=== PATIENT | female | born 1985 | race Caucasian/White ===

== ENCOUNTER 2017-08-04 03:01 | Emergency (ER) | payer OTHER, MEDICAID, SELFPAY ==
[2017-08-04 03:11] VITALS: BP 131/84; PULSE 140; RESP 24; TEMP 36.5; O2SAT 100
--- NOTE | 2017-08-04 03:22 | DI.CT.S_ITS ---
PROCEDURE: CT ABDOMEN PELVIS W CON INDICATIONS: Upper GI bleeding and EtOH TECHNIQUE: After the administration of intravenous contrast, 5 mm thick sections acquired from the diaphragm to the symphysis. 5 mm coronal and sagittal reformats were acquired. For radiation dose reduction, the following was used: automated exposure control, adjustment of mA and/or kV according to patient size. COMPARISON: None. FINDINGS: Image quality: Excellent. ABDOMEN: Lung bases: Lung bases are clear. Heart size is normal. There is concentric wall thickening of the visualized distal esophagus. No definite gastroesophageal varices identified. Solid organs: There is diffuse hypoattenuation of the liver compatible with steatosis. The liver appears smooth in contour on CT. Gallbladder appears within normal limits without calcified gallstones. Biliary system is non dilated. Pancreas enhances normally. Spleen is borderline enlarged, measuring up to 13.4 cm No adrenal nodules. Kidneys demonstrate normal size and enhancement, without hydronephrosis. Peritoneum and bowel: The stomach is partially distended with fluid and gas present. No definite evidence of active extravasation visualized. Small bowel loops demonstrate normal wall thickness and caliber. There is mild colonic wall thickening involving the majority of the colon which is nondistended. No free fluid or air. Nodes and vessels: No retroperitoneal or mesenteric adenopathy by size criteria. Aorta and inferior vena cava are normal in size. Miscellaneous: No ventral hernias. PELVIS: Genitourinary: Bladder wall thickness is normal. There is a small peripheral enhancing cystic structure in the right ovary measuring up to approximately 1.5 cm likely representing a corpus luteal cyst. The uterus and ovaries appear within normal size limits for age. Miscellaneous: No inguinal hernias or adenopathy. Bones: No suspicious bony lesions. No vertebral body compression fractures. IMPRESSION: 1. Concentric wall thickening of the visualized distal esophagus consistent with a nonspecific esophagitis. No definite gastroesophageal varices identified. 2. Mild diffuse colonic wall thickening likely reflecting a mild infectious or inflammatory colitis. 3. Hypoattenuation of the liver consistent with steatosis. Dictated by: Vivek Ley M.D. on 08/04/2017 at 7:51 Approved by: Vivek Ley M.D. on 08/04/2017 at 7:56
--- NOTE | 2017-08-04 03:25 | DI.RAD.S_ITS ---
PROCEDURE: XR CHEST 1V INDICATIONS: chest pain after vomiting TECHNIQUE: One view of the chest was acquired. COMPARISON: [facility], , CHEST 1 VIEW, 01/13/2017, 16:33. FINDINGS: Surgical changes and devices: None. Lungs and pleura: No pleural effusions or pneumothorax. Lungs are clear. Mediastinum: Mediastinal contours appear normal. Heart size is normal. Bones and chest wall: No suspicious bony lesions. Overlying soft tissues appear unremarkable. IMPRESSION: Normal for age, source of current symptoms is not seen. Dictated by: Suleman Ariza M.D. on 08/04/2017 at 9:08 Approved by: Suleman Ariza M.D. on 08/04/2017 at 9:08
[2017-08-04] MEDS: ONDANSETRON 4 MG/2 ML INJ IV (03:29)
[2017-08-04] MEDS: PANTOPRAZOLE 40 MG VIAL IV (03:29)
[2017-08-04] MEDS: SODIUM CHLORIDE 0.9% 1,000 ML 250 ML IV (03:29)
--- NOTE | 2017-08-04 03:39 | PC.NURSE ---
Pt reports several days of n/v/d/chills with bright red bloody emesis x2 tonight. Reports history of ETOH abuse, last drink 3 weeks ago per pt. Has not been taking her omeprazole. Hx of esophagitis. Abd soft, sinus tach on monitor, md at bedside at time of assmt.
[2017-08-04 03:42] LABS: Add Manual Diff / Slide Review NO; Basophils Percent Auto 0.1 % (0-2); Hematocrit 48.2 % (36-46); Hemoglobin 17.3 g/dL (12.0-16.0); Lymphocytes Percent Auto 6.5 % (25-40); Mean Corpuscular HGB Conc 35.9 % (30-36); Mean Corpuscular Hemoglobin 35.8 PG (26-34); Mean Corpuscular Volume 99.6 fL (80-100); Monocytes Percent Auto 5.7 % (3-14); Neutrophils Absolute Auto 10900 /uL (3000-5900); Neutrophils Percent Auto 87.7 % (50-75); Platelet Count 155 X10^3/uL (150-400); Red Blood Cell Count 4.84 X10^6/uL (4.0-5.2); Red Cell Distribution Width 15.2 % (11.6-14.8); White Blood Cell Count 12.4 X10^3/uL (4.5-11.0)
[2017-08-04 03:44] LABS: Lactate (Lactic Acid) 6.7 mmol/L (0.7-2.1)
[2017-08-04 03:46] LABS: PTT Partial Thromboplastin Tim 32 SECONDS (26.4-36.2)
[2017-08-04 03:47] LABS: Alanine Aminotransferase 54 IU/L (9-52); Albumin 5.7 g/dL (3.5-5.0); Albumin Globulin Ratio 1.2 (1.0-2.8); Alkaline Phosphatase 90 U/L (38-126); Aspartate Aminotransferase 95 IU/L (14-36); Calcium 8.9 mg/dL (8.4-10.2); Estimated Glomerular Filt Rate 57.2 mL/min (>60); Globulin 4.7 g/dL (1.7-4.1); Glucose 157 mg/dL (70-100); HEMOLYSIS 40 (0-50); Potassium 5.1 mmol/L (3.4-5.1); Sodium 139 mmol/L (137-145)
[2017-08-04 03:51] LABS: Carbon Dioxide < 5.0 mmol/L (22-32)
[2017-08-04 03:52] LABS: Total Protein 10.4 g/dL (6.3-8.2)
[2017-08-04 03:54] LABS: Lipase 595 U/L (23-300)
[2017-08-04] MEDS: LORazepam 2 MG/ML SYRINGE IV ×2 (03:54→07:30)
[2017-08-04 03:57] LABS: INR 1.1 (0.9-1.3); Prothrombin Time 11.5 SECONDS (10.1-12.7)
[2017-08-04 03:58] VITALS: BP 128/94; PULSE 129; RESP 19; O2SAT 99
[2017-08-04 04:11] LABS: Magnesium 1.7 mg/dL (1.6-2.3); Phosphorous 5.8 mg/dL (2.5-4.5)
[2017-08-04 04:16] LABS: Pregnancy Test Serum,Qual Negative (Negative)
--- NOTE | 2017-08-04 04:19 | ED.GIBLEED ---
HPI - GI Bleed General Chief complaint: GI Bleed Stated complaint: THROWING UP BLOOD Time Seen by Provider: 08/04/17 03:04 Source: patient, RN notes reviewed and old records reviewed Mode of arrival: ambulatory Limitations: no limitations History of Present Illness HPI Narrative: Patient is a 31-year-old female presenting with hematemesis x1. She has a known binge alcoholic. She says she has had a drink for about 2 weeks. Over the last 3 days she has been having numerous episodes of vomiting. It is all been by all bile. This evening she had 1 episode of bright red blood in it was after a violent episode of vomiting. She vomited 1 other time after that and she said it was pink a but no gross blood like before. She has been having lots of diarrhea as well but she denies any black stools or bloody stools. She is having diffuse abdominal pain. She actually had any EGD with Dr. Morocho: 05/28/2017 for ulcerative esophagitis. At that time there were no ulcers present and no mention of varices. Patient denies having history of varices Related Data Home Medications Medication Instructions Recorded Confirmed lisdexamfetamine [Vyvanse] 40 mg PO QDAY #0 01/13/17 omeprazole #0 04/28/17 Previous Rx's Medication Instructions Recorded sucralfate [Carafate] 1 gm PO ACHS #120 ml 02/24/17 cyanocobalamin (vitamin B-12) 1,000 mcg IM X1 #1 ea 03/10/17 VITAMIN B COMPLEX (VITAMIN B 1 ml IM QWEEK #1 vial 03/12/17 COMPLEX 100 30 ML) lorazepam [Ativan] 1 mg PO BIDP PRN #30 tab 04/28/17 Allergies Allergy/AdvReac Type Severity Reaction Status Date / Time No Known Allergies Allergy Unknown Unverified 06/30/17 12:36 [NO KNOWN ALLERGIES] Review of Systems Review of Systems All systems reviewed & are unremarkable except as noted in HPI and below Constitutional Denies frequent falls ENT Ears, Nose, Mouth, and Throat: Denies dizziness Cardiovascular Reports lightheadedness, Reports palpitations, Denies dyspnea and Denies dyspnea on exertion Respiratory Denies cough, Denies dyspnea, Denies dyspnea on exertion and Denies wheezing Gastrointestinal Gastrointestinal: Reports as per HPI, Reports abdominal pain, Reports change in bowel habits, Reports diarrhea, Reports nausea and Reports hematemesis (x1) Musculoskeletal Denies numbness Integumentary/Breasts Denies pruritus, Denies erythema, Denies rash and Denies wounds Neurologic Denies behavioral changes, Denies confusion, Denies dizziness, Denies frequent falls, Denies numbness and Denies seizure-like activity Psychiatric Denies behavioral changes and Denies confusion Endocrine Reports palpitations Allergic/Immunologic Denies wheezing PFSH Medical History Alcoholism (Acute) Pancreatitis (Acute) Surgical History Status post adenoidectomy Social History Smoking Status: Former smoker Exam Const General: in distress, No intoxicated appearing and No well hydrated Nutritional Appearance: average body habitus HENMT Face and sinus: dry mucous membranes and other (Bright blood on the lips) Neck Neck: No JVD Cardio Rate: tachycardic Rhythm: regular rhythm GI Palpation: soft Percussion: normal to percussion Other: Patient refused rectal exam Neuro General: alert, oriented x3, gait normal and no focal motor deficits Cranial Nerves: CN's II-XI intact bilaterally Speech: speech normal Motor: strength 5/5 throughout and No asterixis Sensory Exam: no sensory deficits noted Course Hospital Course: 7:00 a.m. repeat labs return as EMS is here to transport patient to the ICU. Potassium is called as critical 6.5. Of Lasix insulin dextrose of Kayexalate ordered. Lab states that it is not hemolyzed. Otherwise her labs are actually improving bicarb of now 10. Orders Ordered: Discontinued Medications Dextrose (D50w) 25 gm IV NOW ONE Stop: 08/04/17 07:00 Last Admin: 08/04/17 07:19 Dose: 25 gm Furosemide (Lasix) 60 mg IV NOW ONE Stop: 08/04/17 07:00 Last Admin: 08/04/17 07:32 Dose: Octreotide Acetate 500 mcg/ (Sodium Chloride) 101 mls @ 5.05 mls/hr IV CONT JOSEFINA Last Infusion: 08/04/17 07:50 Dose: 24.99 mcg/hr, 5.05 mls/hr Admin: 08/04/17 04:43 Dose: 25 mcg/hr, 5.05 mls/hr Pantoprazole Sodium 80 mg/ (Sodium Chloride) 100 mls @ 10 mls/hr IV CONT JOSEFINA Last Infusion: 08/04/17 07:34 Dose: 8 mg/hr, 10 mls/hr Admin: 08/04/17 04:43 Dose: 8 mg/hr, 10 mls/hr Sodium Chloride (Normal Saline 0.9%) 1,000 mls @ 250 mls/hr IV CONT JOSEFINA Last Infusion: 08/04/17 07:34 Dose: 0 mls/hr Admin: 08/04/17 03:29 Dose: 250 mls/hr Sodium Chloride (Normal Saline 0.9%) 1,000 mls @ 1,000 mls/hr IV BOLUS ONE Stop: 08/04/17 04:54 Last Infusion: 08/04/17 05:54 Dose: 0 mls/hr Admin: 08/04/17 04:44 Dose: 1,000 mls/hr Dextrose/Sodium Chloride (Dextrose 5%-0.2% Ns) 500 mls @ 500 mls/hr IV BOLUS ONE Stop: 08/04/17 05:03 Last Admin: 08/04/17 05:57 Dose: Not Given Thiamine HCl 100 mg/ Dextrose 51 mls @ 204 mls/hr IV NOW ONE Stop: 08/04/17 04:06 Last Infusion: 08/04/17 05:53 Dose: 0 mls/hr Admin: 08/04/17 04:44 Dose: 204 mls/hr Dextrose/Sodium Chloride (Dextrose 5%-0.9% Ns) 1,000 mls @ 500 mls/hr IV CONT JOSEFINA Last Infusion: 08/04/17 06:48 Dose: 0 mls/hr Admin: 08/04/17 04:45 Dose: 500 mls/hr Dextrose/Sodium Chloride (Dextrose 5%-0.9% Ns) 1,000 mls @ 250 mls/hr IV CONT JOSEFINA Last Infusion: 08/04/17 07:51 Dose: 250 mls/hr Admin: 08/04/17 06:49 Dose: 250 mls/hr Insulin Human Regular (Humulin R) 10 unit IV NOW ONE Stop: 08/04/17 07:05 Last Admin: 08/04/17 07:18 Dose: 10 unit Lorazepam (Ativan) 2 mg IV NOW ONE Stop: 08/04/17 03:50 Last Admin: 08/04/17 03:54 Dose: 2 mg Lorazepam (Ativan) 2 mg IV NOW ONE Stop: 08/04/17 07:27 Last Admin: 08/04/17 07:30 Dose: 2 mg Octreotide Acetate (Sandostatin) 50 mcg IV NOW ONE Stop: 08/04/17 03:21 Last Admin: 08/04/17 04:43 Dose: 50 mcg Ondansetron HCl (Zofran) 4 mg IV NOW ONE Stop: 08/04/17 03:21 Last Admin: 08/04/17 03:29 Dose: 4 mg Pantoprazole Sodium (Protonix) 40 mg IV NOW ONE Stop: 08/04/17 03:21 Last Admin: 08/04/17 03:29 Dose: 40 mg Sodium Polystyrene Sulfonate (Kayexalate) 30 gm PO NOW ONE Stop: 08/04/17 07:00 Last Admin: 08/04/17 07:32 Dose: Consultations Consultation #1: Dr. Schulz, surgery at [facility] recommend that with upper GI bleed patient be transferred to other facility with a very capable of fixing varicocele bleed Time: 05:03 Consultation #2: ICU at [facility], she has been updated patient's symptoms and test results. Repeat lactate and electrolytes are pending. She request Keller catheter be placed. And continue with hydration. 7:30 a.m. ICU harness placer notified of repeat potassium of more than 6. He he understands that recheck potassium is pending IV insulin and dextrose given but no other hyperkalemic meds. He he was agreeable to transfer at this time. Time: 05:23 Last Vital Signs Temp 97.7 F 08/04/17 07:53 Pulse 118 H 08/04/17 07:53 Resp 26 H 08/04/17 07:53 BP 126/84 H 08/04/17 07:53 Pulse Ox 100 08/04/17 07:53 MDM - GI Bleed MDM Narrative Medical decision making narrative: The patient is severely dehydrated from vomiting for multiple days. Definitely has ketoacidosis, possible alcoholic ketoacidosis. Although she says she has not been drinking for about 2 weeks. She had some mild withdrawal symptoms but no seizures or hallucinations. She has no further episodes of vomiting. She only had 1 episode of bright red blood without evidence of blood on her lips. No documented varices on CT or most recent EGD. This is most likely a Trish-Rivera tear however will continue to treat for variceal bleeding. She is feeling much better with IV fluids. He is given 1 dose of IV thiamine prior to starting the D5 Anion gap 44, lactic acid 6.7, large ketones Differential Diagnosis Likely gastritis, Trish-Rivera syndrome, Upper gastrointestinal hemorrhage and Lower gastrointestinal hemorrhage Medical Records Attestation: I reviewed the patient's medical records. Lab Data Attestation: I reviewed the patient's lab results. Result diagrams: 08/04/17 03:20 08/04/17 07:25 Lab Results 08/04/17 08/04/17 08/04/17 Range/Units 03:20 03:20 03:20 WBC 12.4 H (4.5-11.0) X10^3/uL RBC 4.84 (4.0-5.2) X10^6/uL Hgb 17.3 H (12.0-16.0) g/dL Hct 48.2 H (36-46) % MCV 99.6 (80-100) fL MCH 35.8 H (26-34) PG MCHC 35.9 (30-36) % RDW 15.2 H (11.6-14.8) % Plt Count 155 (150-400) X10^3/uL Neut % (Auto) 87.7 H (50-75) % Lymph % (Auto) 6.5 L (25-40) % Hartley % (Auto) 5.7 (3-14) % Eos % (Auto) 0.0 L (2-4) % Baso % (Auto) 0.1 (0-2) % Neut # (Auto) 81741 H (5187-7837) /uL PT (10.1-12.7) SECONDS INR (0.9-1.3) APTT (26.4-36.2) SECONDS ABG pH (7.35-7.45) ABG pCO2 (35-45) mmHg ABG pO2 (80-105) mmHg ABG HCO3 (23-27) mmol/L ABG Total CO2 (23-27) mmol/L ABG O2 Saturation (95-100) % ABG Base Excess (-2-3) mmol/L FiO2 Sodium (137-145) mmol/L Potassium (3.4-5.1) mmol/L Chloride (98-107) mmol/L Carbon Dioxide (22-32) mmol/L BUN (7-17) mg/dL Creatinine (0.52-1.04) mg/dL Estimated GFR (>60) mL/min BUN/Creatinine Ratio (6-22) Glucose (70-100) mg/dL Lactate 6.7 H (0.7-2.1) mmol/L Calcium (8.4-10.2) mg/dL Phosphorus (2.5-4.5) mg/dL Magnesium (1.6-2.3) mg/dL Total Bilirubin (0.2-1.3) mg/dL AST (14-36) IU/L ALT (9-52) IU/L Alkaline Phosphatase (38-126) U/L Total Protein (6.3-8.2) g/dL Albumin (3.5-5.0) g/dL Globulin (1.7-4.1) g/dL Albumin/Globulin Ratio (1.0-2.8) Lipase 595 H (23-300) U/L Serum , Qual (Negative) Ketones (<0.27) mmol/L Blood Type Antibody Screen 08/04/17 08/04/17 08/04/17 Range/Units 03:20 03:20 03:20 WBC (4.5-11.0) X10^3/uL RBC (4.0-5.2) X10^6/uL Hgb (12.0-16.0) g/dL Hct (36-46) % MCV (80-100) fL MCH (26-34) PG MCHC (30-36) % RDW (11.6-14.8) % Plt Count (150-400) X10^3/uL Neut % (Auto) (50-75) % Lymph % (Auto) (25-40) % Hartley % (Auto) (3-14) % Eos % (Auto) (2-4) % Baso % (Auto) (0-2) % Neut # (Auto) (5636-3057) /uL PT 11.5 (10.1-12.7) SECONDS INR 1.1 (0.9-1.3) APTT 32 (26.4-36.2) SECONDS ABG pH (7.35-7.45) ABG pCO2 (35-45) mmHg ABG pO2 (80-105) mmHg ABG HCO3 (23-27) mmol/L ABG Total CO2 (23-27) mmol/L ABG O2 Saturation (95-100) % ABG Base Excess (-2-3) mmol/L FiO2 Sodium 139 (137-145) mmol/L Potassium 5.1 (3.4-5.1) mmol/L Chloride 95.0 L (98-107) mmol/L Carbon Dioxide < 5.0 L* (22-32) mmol/L BUN 11.0 (7-17) mg/dL Creatinine 1.10 H (0.52-1.04) mg/dL Estimated GFR 57.2 L (>60) mL/min BUN/Creatinine Ratio 10.0 (6-22) Glucose 157 H (70-100) mg/dL Lactate (0.7-2.1) mmol/L Calcium 8.9 (8.4-10.2) mg/dL Phosphorus (2.5-4.5) mg/dL Magnesium (1.6-2.3) mg/dL Total Bilirubin 2.0 H (0.2-1.3) mg/dL AST 95 H (14-36) IU/L ALT 54 H (9-52) IU/L Alkaline Phosphatase 90 (38-126) U/L Total Protein 10.4 H* (6.3-8.2) g/dL Albumin 5.7 H (3.5-5.0) g/dL Globulin 4.7 H (1.7-4.1) g/dL Albumin/Globulin Ratio 1.2 (1.0-2.8) Lipase (23-300) U/L Serum , Qual (Negative) Ketones (<0.27) mmol/L Blood Type Antibody Screen 08/04/17 08/04/17 08/04/17 Range/Units 03:20 03:20 03:20 WBC (4.5-11.0) X10^3/uL RBC (4.0-5.2) X10^6/uL Hgb (12.0-16.0) g/dL Hct (36-46) % MCV (80-100) fL MCH (26-34) PG MCHC (30-36) % RDW (11.6-14.8) % Plt Count (150-400) X10^3/uL Neut % (Auto) (50-75) % Lymph % (Auto) (25-40) % Hartley % (Auto) (3-14) % Eos % (Auto) (2-4) % Baso % (Auto) (0-2) % Neut # (Auto) (7968-5726) /uL PT (10.1-12.7) SECONDS INR (0.9-1.3) APTT (26.4-36.2) SECONDS ABG pH (7.35-7.45) ABG pCO2 (35-45) mmHg ABG pO2 (80-105) mmHg ABG HCO3 (23-27) mmol/L ABG Total CO2 (23-27) mmol/L ABG O2 Saturation (95-100) % ABG Base Excess (-2-3) mmol/L FiO2 Sodium (137-145) mmol/L Potassium (3.4-5.1) mmol/L Chloride (98-107) mmol/L Carbon Dioxide (22-32) mmol/L BUN (7-17) mg/dL Creatinine (0.52-1.04) mg/dL Estimated GFR (>60) mL/min BUN/Creatinine Ratio (6-22) Glucose (70-100) mg/dL Lactate (0.7-2.1) mmol/L Calcium (8.4-10.2) mg/dL Phosphorus 5.8 H (2.5-4.5) mg/dL Magnesium 1.7 (1.6-2.3) mg/dL Total Bilirubin (0.2-1.3) mg/dL AST (14-36) IU/L ALT (9-52) IU/L Alkaline Phosphatase (38-126) U/L Total Protein (6.3-8.2) g/dL Albumin (3.5-5.0) g/dL Globulin (1.7-4.1) g/dL Albumin/Globulin Ratio (1.0-2.8) Lipase (23-300) U/L Serum , Qual (Negative) Ketones 10.07 H (<0.27) mmol/L Blood Type O Positive Antibody Screen Negative 08/04/17 08/04/17 08/04/17 Range/Units 03:20 06:24 06:24 WBC (4.5-11.0) X10^3/uL RBC (4.0-5.2) X10^6/uL Hgb (12.0-16.0) g/dL Hct (36-46) % MCV (80-100) fL MCH (26-34) PG MCHC (30-36) % RDW (11.6-14.8) % Plt Count (150-400) X10^3/uL Neut % (Auto) (50-75) % Lymph % (Auto) (25-40) % Hartley % (Auto) (3-14) % Eos % (Auto) (2-4) % Baso % (Auto) (0-2) % Neut # (Auto) (9007-2705) /uL PT (10.1-12.7) SECONDS INR (0.9-1.3) APTT (26.4-36.2) SECONDS ABG pH (7.35-7.45) ABG pCO2 (35-45) mmHg ABG pO2 (80-105) mmHg ABG HCO3 (23-27) mmol/L ABG Total CO2 (23-27) mmol/L ABG O2 Saturation (95-100) % ABG Base Excess (-2-3) mmol/L FiO2 Sodium 130 L (137-145) mmol/L Potassium 6.5 H* D (3.4-5.1) mmol/L Chloride 98.0 (98-107) mmol/L Carbon Dioxide 10.0 L (22-32) mmol/L BUN (7-17) mg/dL Creatinine (0.52-1.04) mg/dL Estimated GFR (>60) mL/min BUN/Creatinine Ratio (6-22) Glucose (70-100) mg/dL Lactate 1.7 (0.7-2.1) mmol/L Calcium (8.4-10.2) mg/dL Phosphorus (2.5-4.5) mg/dL Magnesium (1.6-2.3) mg/dL Total Bilirubin (0.2-1.3) mg/dL AST (14-36) IU/L ALT (9-52) IU/L Alkaline Phosphatase (38-126) U/L Total Protein (6.3-8.2) g/dL Albumin (3.5-5.0) g/dL Globulin (1.7-4.1) g/dL Albumin/Globulin Ratio (1.0-2.8) Lipase (23-300) U/L Serum , Qual Negative (Negative) Ketones (<0.27) mmol/L Blood Type Antibody Screen 08/04/17 08/04/17 Range/Units 06:38 07:25 WBC (4.5-11.0) X10^3/uL RBC (4.0-5.2) X10^6/uL Hgb (12.0-16.0) g/dL Hct (36-46) % MCV (80-100) fL MCH (26-34) PG MCHC (30-36) % RDW (11.6-14.8) % Plt Count (150-400) X10^3/uL Neut % (Auto) (50-75) % Lymph % (Auto) (25-40) % Hartley % (Auto) (3-14) % Eos % (Auto) (2-4) % Baso % (Auto) (0-2) % Neut # (Auto) (8612-9307) /uL PT (10.1-12.7) SECONDS INR (0.9-1.3) APTT (26.4-36.2) SECONDS ABG pH 7.24 L* (7.35-7.45) ABG pCO2 24.0 L* (35-45) mmHg ABG pO2 91 (80-105) mmHg ABG HCO3 10 L (23-27) mmol/L ABG Total CO2 11 L (23-27) mmol/L ABG O2 Saturation 96 (95-100) % ABG Base Excess -17.0 L (-2-3) mmol/L FiO2 0.21 Sodium (137-145) mmol/L Potassium 6.2 H (3.4-5.1) mmol/L Chloride (98-107) mmol/L Carbon Dioxide (22-32) mmol/L BUN (7-17) mg/dL Creatinine (0.52-1.04) mg/dL Estimated GFR (>60) mL/min BUN/Creatinine Ratio (6-22) Glucose (70-100) mg/dL Lactate (0.7-2.1) mmol/L Calcium (8.4-10.2) mg/dL Phosphorus (2.5-4.5) mg/dL Magnesium (1.6-2.3) mg/dL Total Bilirubin (0.2-1.3) mg/dL AST (14-36) IU/L ALT (9-52) IU/L Alkaline Phosphatase (38-126) U/L Total Protein (6.3-8.2) g/dL Albumin (3.5-5.0) g/dL Globulin (1.7-4.1) g/dL Albumin/Globulin Ratio (1.0-2.8) Lipase (23-300) U/L Serum , Qual (Negative) Ketones (<0.27) mmol/L Blood Type Antibody Screen Imaging Data CT scan - abdomen: Radiologist's impression: 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 No evidence of bowel obstruction. Fatty liver and suspicion portal hypertension suspicion slight opacification of left umbilical vein. Borderline splenomegaly. Collapsed gastric antrum and pylorus without obvious ulcer or wall thickening Chest x-ray: Attestation: I personally reviewed and interpreted this imaging study as follows: My impression: No acute cardiopulmonary process ECG Data Attestation: I personally reviewed and interpreted this ECG as follows: Prior ECG tracings: available for review Interpretation: Sinus tachycardia rate [address] changes Discharge Plan Departure Patient Disposition: [facility] Clinical Impression: Alcoholic ketoacidosis, Acute GI bleeding Discharge Date/Time: 08/04/17 07:49 Interventions: ED Discharge Assessment Last Done: 08/04/17 07:53 Prescriptions: No Action lisdexamfetamine [Vyvanse] 40 MG capsule 40 mg PO QDAY Qty: 0 RF: 0 sucralfate [Carafate] 1 GM/10 ML suspension 1 gm PO ACHS Qty: 120 RF: 3 cyanocobalamin (vitamin B-12) Vitamin B-12 solution 1,000 mcg IM X1 Qty: 1 RF: 3 VITAMIN B COMPLEX (VITAMIN B COMPLEX 100 30 ML) 1 ml IM QWEEK Qty: 1 RF: 0 omeprazole 20 mg Tablet,Delayed Release (Dr/Ec) Qty: 0 RF: 0 lorazepam [Ativan] 1 MG tablet 1 mg PO BIDP PRNQty: 30 RF: 3
[2017-08-04 04:39] LABS: Ketones (Beta-Hydroxybutyrate) 10.07 mmol/L (<0.27)
[2017-08-04] MEDS: PANTOPRAZOLE 80 MG in SODIUM CHLORIDE 0.9% 100 ML 10 ML IV (04:43)
[2017-08-04] MEDS: OCTREOTIDE 100 MCG/ML VIAL 50 MCG IV (04:43)
[2017-08-04] MEDS: OCTREOTIDE 500 MCG in SODIUM CHLORIDE 0.9% 100 ML 5.05 ML IV (04:43)
[2017-08-04] MEDS: SODIUM CHLORIDE 0.9% 1,000 ML 1000 ML IV (04:44)
[2017-08-04] MEDS: THIAMINE 100 MG in DEXTROSE 5 % IN WATER 50 ML 204 ML IV (04:44)
[2017-08-04] MEDS: DEXTROSE 5%-0.9% NS 1,000 ML 500 ML IV (04:45)
[2017-08-04 04:52] VITALS: BP 135/91; PULSE 112; RESP 22; O2SAT 100
[2017-08-04 06:49] VITALS: BP 132/84; PULSE 116; RESP 25; O2SAT 99
[2017-08-04] MEDS: DEXTROSE 5%-0.9% NS 1,000 ML 250 ML IV (06:49)
[2017-08-04 06:54] LABS: Lactate (Lactic Acid) 1.7 mmol/L (0.7-2.1)
[2017-08-04 06:55] LABS: HEMOLYSIS < 15 (0-50); Sodium 130 mmol/L (137-145)
[2017-08-04 07:00] LABS: Potassium 6.5 mmol/L (3.4-5.1)
[2017-08-04] MEDS: INSULIN REGULAR 100 UNIT/ML 3 ML VIAL 10 UNIT IV (07:18)
[2017-08-04] MEDS: DEXTROSE 50 % IN WATER 25 GM/50 ML SYRINGE IV (07:19)
[2017-08-04 07:20] LABS: HCO3 ABG 10 mmol/L (23-27); PO2 ABG 91 mmHg (80-105); TCO2 ABG 11 mmol/L (23-27); pH ABG 7.24 (7.35-7.45)
[2017-08-04 07:21] LABS: Fractionated Inspired Oxygen 0.21; Oxygen Saturation ABG 96 % (95-100)
[2017-08-04 07:32] LABS: Reflexed Lactate in 2 Hours Y
--- NOTE | 2017-08-04 07:32 | PC.NURSE ---
0732 Report called to Nga ROCK at [facility]
[2017-08-04 07:35] LABS: HEMOLYSIS < 15 (0-50)
[2017-08-04 07:36] LABS: Potassium 6.2 mmol/L (3.4-5.1)
[2017-08-04 07:53] VITALS: BP 126/84; PULSE 118; RESP 26; TEMP 36.5; O2SAT 100
== END 2017-08-04 07:49 | disposition short-term general hospital (02) ==
PROVIDERS: Emergency Provider Emergency Medicine; PCP Physician Assistant
DX: E87.2 Acidosis (principal); K92.2 Gastrointestinal hemorrhage, unspecified
CPT/HCPCS: 36591; 36600; 71045; 74177; 80051; 80053; 82009; 82805; 82962; 83605; 83690; 83735; 84100; 84132; 84703; 85025; 85610; 85730; 86850; 86900; 86901; 93005; 96361; 96365; 96366; 96375; 99285; C9113; J2060; J2354; J2405; Q9967

== ENCOUNTER 2017-10-05 22:14 | Inpatient (IN) | payer OTHER, MEDICAID, SELFPAY ==
[2017-10-05 22:24] VITALS: BP 139/96; PULSE 131; RESP 20; TEMP 36.4; O2SAT 96; BMI 23.6
[2017-10-05] MEDS: LORazepam 2 MG/ML SYRINGE IV (23:08)
[2017-10-05] MEDS: SODIUM CHLORIDE 0.9% 1,000 ML 1000 ML IV (23:08)
[2017-10-05 23:10] VITALS: BP 122/92; PULSE 112; RESP 22; O2SAT 97
[2017-10-05 23:31] LABS: Add Manual Diff / Slide Review NO; Basophils Percent Auto 0.5 % (0-2); Hematocrit 49.3 % (36-46); Hemoglobin 17.4 g/dL (12.0-16.0); Lymphocytes Percent Auto 11.1 % (25-40); Mean Corpuscular HGB Conc 35.4 % (30-36); Mean Corpuscular Hemoglobin 34.8 PG (26-34); Mean Corpuscular Volume 98.4 fL (80-100); Monocytes Percent Auto 4.2 % (3-14); Neutrophils Absolute Auto 6900 /uL (3000-5900); Neutrophils Percent Auto 84.2 % (50-75); Platelet Count 194 X10^3/uL (150-400); Red Cell Distribution Width 16.2 % (11.6-14.8); White Blood Cell Count 8.1 X10^3/uL (4.5-11.0)
[2017-10-05 23:35] LABS: Alanine Aminotransferase 80 IU/L (9-52); Albumin 5.4 g/dL (3.5-5.0); Albumin Globulin Ratio 1.4 (1.0-2.8); Alkaline Phosphatase 91 U/L (38-126); Aspartate Aminotransferase 136 IU/L (14-36); BUN Creatinine Ratio 8.8 (6-22); Bilirubin Unconjugated 0.4 mg/dL (0.0-1.1); Blood Urea Nitrogen 7 mg/dL (7-17); Calcium 8.8 mg/dL (8.4-10.2); Chloride 99 mmol/L (98-107); Estimated Glomerular Filt Rate > 60.0 mL/min (>60); Globulin 3.8 g/dL (1.7-4.1); Glucose 91 mg/dL (70-100); HEMOLYSIS < 15 (0-50); Lipase 201 U/L (23-300); Magnesium 1.9 mg/dL (1.6-2.3); Potassium 4.8 mmol/L (3.4-5.1); Sodium 140 mmol/L (137-145); Total Protein 9.2 g/dL (6.3-8.2)
[2017-10-05] MEDS: THIAMINE 100 MG in DEXTROSE 5 % IN WATER 50 ML 204 ML IV (23:37)
[2017-10-05] MEDS: ONDANSETRON 4 MG/2 ML INJ IV (23:37)
[2017-10-05 23:52] LABS: Macrocytosis 2+; Polychromasia 1+
[2017-10-05 23:54] LABS: Carbon Dioxide < 5 mmol/L (22-32)
[2017-10-06] VITALS (11 sets, daily range): BP systolic 111–140; BP diastolic 59–88; PULSE 95–131; RESP 13–22; TEMP 36.3–37.2; O2SAT 96–100; BMI 23.8
[2017-10-06 00:07] LABS: Ethanol (ETOH) 162 mg/dL
[2017-10-06 00:45] LABS: PCO2 VBG 33.3 mmHg (45-50); PO2 VBG 41 mmHg (35-45); pH VBG 7.09 (7.31-7.41)
[2017-10-06 00:46] LABS: HCO3 VBG 10 mmol/L (24-28); Oxygen Saturation VBG 59 % (70-75); Total CO2 VBG 11 mmol/L (24-29)
[2017-10-06 01:21] LABS: Ketones (Beta-Hydroxybutyrate) 10.89 mmol/L (<0.27)
--- NOTE | 2017-10-06 01:29 | ED_ITS ---
HPI - Alcohol General Chief Complaint: Toxicology Problem Stated Complaint: ETOH PARVIN Uriostegui Time Seen by Provider: 10/05/17 22:36 Source: patient Mode of arrival: ambulatory Limitations: no limitations History of Present Illness HPI narrative: 32-year-old female with history of significant alcohol abuse, up to 750mL of vodka daily. She has been drinking at least this heavy for the past few weeks and stopped 24 hr ago. She presents shaking and nauseated with a terrible headache and a racing heart. She has been through alcohol withdrawal in the past but denies any history of seizures. She was seen in July for alcohol ketoacidosis and upper GI bleed and was transferred to tertiary care center. She denies any GI bleeding, epigastric pain, dark and tarry stools this time. MD complaint: alcohol withdrawal Chronic alcohol use: Yes Previous visits for alcohol intoxication: Yes Recent trauma: No Associated symptoms: nausea and tremors Treatments prior to arrival: none Related Data Home Medications Medication Instructions Recorded Confirmed lisdexamfetamine [Vyvanse] 40 mg PO QDAY #0 01/13/17 10/06/17 omeprazole 20 mg PO DAILY #0 04/28/17 10/06/17 Previous Rx's Medication Instructions Recorded cyanocobalamin (vitamin B-12) 1,000 mcg IM X1 #1 ea 03/10/17 lorazepam 1 mg tablet 1 mg PO BIDP PRN #30 tab 09/09/17 Allergies Allergy/AdvReac Type Severity Reaction Status Date / Time No Known Allergies Allergy Unknown Verified 10/05/17 23:08 [NO KNOWN ALLERGIES] Review of Systems Review of Systems All systems reviewed & are unremarkable except as noted in HPI and below Constitutional Denies chills, Denies fever(s), Reports lethargy and Reports weakness Eyes Denies change in vision, Denies eye discharge, Denies irritation and Denies loss of vision ENT Ears, Nose, Mouth, and Throat: Denies change in voice, Denies neck pain and Denies sore throat Cardiovascular Denies chest pain, Reports irregular heart rhythm, Denies lightheadedness, Denies palpitations, Denies dyspnea, Denies dyspnea on exertion and Denies orthopnea Respiratory Denies cough, Denies dyspnea, Denies dyspnea on exertion and Denies wheezing Gastrointestinal Gastrointestinal: Denies abdominal pain, Denies change in bowel habits, Denies diarrhea, Denies nausea and Denies vomiting Genitourinary Denies hematuria, Denies flank pain, Denies urinary incontinence and Denies urinary urgency Musculoskeletal Denies neck pain Integumentary/Breasts Denies pruritus, Denies erythema, Denies rash and Denies wounds Neurologic Denies confusion, Denies loss of vision and Reports weakness Psychiatric Denies anxiety, Denies confusion, Denies depression, Denies homicidal ideation and Denies suicidal ideation Endocrine Denies palpitations Hematologic/Lymphatic Denies easy bruising Allergic/Immunologic Denies wheezing PFSH Medical History Alcoholism (Acute) Pancreatitis (Acute) Surgical History Status post adenoidectomy Social History household members: family Smoking Status: Current every day smoker alcohol intake: current Exam Narrative Exam Narrative: 32-year-old female in obvious distress, resting tremor, nauseated tachycardic Initial Vital Signs Initial Vital Signs: Vital Signs Temperature 97.6 F 10/05/17 22:24 Pulse Rate 131 H 10/05/17 22:24 Respiratory Rate 20 10/05/17 22:24 Blood Pressure 139/96 H 10/05/17 22:24 Pulse Oximetry 96 10/05/17 22:24 Const General: cooperative and well developed Nutritional Appearance: well nourished Orientation: alert, awake, oriented x3 and not confused HENKY Head: normocephalic and atraumatic Ears: external ears normal and TM's normal bilaterally Nose: external nose normal and No nasal discharge Face and sinus: sinuses nontender, face symmetric, no sinus tenderness and No dry mucous membranes Mouth: oral mucosae normal and moist mucous membranes Teeth and gingiva: dentition normal Throat: tonsils normal and uvula midline Eyes General: appearance normal, both eyes and all related structures Eyelids: eyelids normal Conjunctivae: conjunctivae normal Sclera: sclerae normal Pupils: PERRL EOM: EOM intact bilaterally Neck Neck: normal visual inspection, trachea midline, No lymphadenopathy, No midline deformity and No JVD Lymphatic: No lymphedema Chest Chest: normal inspection of the chest Resp Effort & Inspection: normal respiratory effort, able to speak in complete sentences, no respiratory distress and no use of accessory muscles Auscultation: clear to auscultation bilaterally, no rales, no rhonchi and no wheezes Cardio Rate: tachycardic Rhythm: regular rhythm Heart Sounds: no click, no gallops, no murmurs and no rubs Pulses: normal peripheral pulses GI Inspection: non-distended Palpation: soft, no hepatosplenomegaly, No guarding, No pulsatile mass and No tender Auscultation: normal bowel sounds Back/Spine/Pelvis Back: No CVA tenderness Cervical Spine: cervical ROM normal and No pain with cervical ROM Thoracic/Lumbar Spine: thoracic and lumbar spine normal to inspection Skin General: no rashes or lesions noted, No jaundice and No petechiae Nails: yellow and thickened Neuro General: alert, oriented x3, gait normal and no focal motor deficits Speech: speech normal Extrem General: full ROM, no clubbing, cyanosis or edema, no pedal edema and no calf tenderness Psych Appearance: well kempt Mental Status: mental status grossly normal Attitude: cooperative Thought Content: normal and suicidality Judgment: judgment good Course Additional Information: [facility] for Alcohol Withdrawal from [address] on 2017 All calculations should be rechecked by clinician prior to use RESULT SUMMARY: 19 points Patients with scores ?9 may require medication for withdrawal. INPUTS: Nausea/vomiting ?> 3 = (More severe symptoms) Tremor ?> 3 = (More severe symptoms) Paroxysmal sweats ?> 3 = (More severe symptoms) Anxiety ?> 3 = (More severe symptoms) Agitation ?> 3 = (More severe symptoms) Tactile disturbances ?> 0 = None Auditory disturbances ?> 0 = Not present Visual disturbances ?> 0 = Not present Headache/fullness in head ?> 4 = Moderately severe Orientation/clouding of sensorium ?> 0 = Oriented, can do serial additions Orders Ordered: ED Orders 10/05/17 22:36 Urine Drug Screen, Rapid Stat 10/05/17 23:17 Complete Blood Count AUTO DIFF Stat Comprehensive Metabolic Panel Stat Ethanol (ETOH) Stat Hepatic (Liver) Panel Stat Lipase Stat Magnesium Stat 10/06/17 Ketones (Beta-Hydroxybutyrate) Stat 10/06/17 00:30 Venous Blood Gas Stat 10/06/17 04:40 Basic Metabolic Panel Stat Lactated Ringer's (Lactated Ringers) 1,000 mls @ 200 mls/hr IV CONT JOSEFINA Last Admin: 10/06/17 03:15 Dose: 200 mls/hr Lorazepam (Ativan) 2 mg IV Q6HR PRN PRN Reason: Alcohol Withdrawal Last Admin: 10/06/17 04:45 Dose: 2 mg Discontinued Medications Sodium Chloride (Normal Saline 0.9%) 1,000 mls @ 1,000 mls/hr IV BOLUS ONE Stop: 10/05/17 23:35 Last Infusion: 10/06/17 00:15 Dose: 0 mls/hr Admin: 10/05/17 23:08 Dose: 1,000 mls/hr Thiamine HCl 100 mg/ Dextrose 51 mls @ 204 mls/hr IV NOW ONE Stop: 10/05/17 22:37 Last Infusion: 10/06/17 00:15 Dose: 0 mls/hr Admin: 10/05/17 23:37 Dose: 204 mls/hr Sodium Chloride (Normal Saline 0.9%) 1,000 mls @ 1,000 mls/hr IV BOLUS ONE Stop: 10/06/17 01:44 Last Infusion: 10/06/17 02:53 Dose: 0 mls/hr Admin: 10/06/17 01:52 Dose: 1,000 mls/hr Ketorolac Tromethamine (Toradol) 15 mg IV NOW ONE Stop: 10/06/17 01:58 Last Admin: 10/06/17 02:14 Dose: 15 mg Lorazepam (Ativan) 2 mg IV NOW ONE Stop: 10/05/17 22:37 Last Admin: 10/05/17 23:08 Dose: 2 mg Lorazepam (Ativan) 2 mg IV NOW ONE Stop: 10/06/17 00:46 Last Admin: 10/06/17 01:49 Dose: 2 mg Ondansetron HCl (Zofran) 4 mg IV NOW ONE Stop: 10/05/17 23:26 Last Admin: 10/05/17 23:37 Dose: 4 mg Vital Signs - 8 hr 10/05/17 23:10 10/06/17 02:11 10/06/17 02:24 Temperature Pulse Rate 112 H 128 H 103 H Respiratory Rate 22 16 19 Blood Pressure 120/77 Blood Pressure [Right Arm] 122/92 H 120/77 Pulse Oximetry 97 100 100 10/06/17 02:55 10/06/17 04:47 Temperature 97.4 F L Pulse Rate 131 H Respiratory Rate 22 Blood Pressure 140/85 H Blood Pressure [Right Arm] Pulse Oximetry 99 97 MDM - Alcohol Differential Diagnosis Differential diagnosis: Likely alcohol withdrawal delirium Medical Records Attestation: I reviewed the patient's medical records. Lab Data Result diagrams: 10/05/17 23:17 10/06/17 04:40 Labs: Lab Results 10/05/17 10/05/17 10/06/17 Range/Units 23:17 23:17 00:30 WBC 8.1 (4.5-11.0) X10^3/uL RBC 5.00 (4.0-5.2) X10^6/uL Hgb 17.4 H (12.0-16.0) g/dL Hct 49.3 H (36-46) % MCV 98.4 (80-100) fL MCH 34.8 H (26-34) PG MCHC 35.4 (30-36) % RDW 16.2 H (11.6-14.8) % Plt Count 194 (150-400) X10^3/uL Neut % (Auto) 84.2 H (50-75) % Lymph % (Auto) 11.1 L (25-40) % [place] % (Auto) 4.2 (3-14) % Eos % (Auto) 0.0 L (2-4) % Baso % (Auto) 0.5 (0-2) % Neut # (Auto) 6900 H (4576-6345) /uL RBC Morphology Not Reportable Polychromasia 1+ H Macrocytosis 2+ H VBG pH 7.09 L* (7.31-7.41) VBG pCO2 33.3 L (45-50) mmHg VBG pO2 41 (35-45) mmHg VBG HCO3 10 L (24-28) mmol/L VBG Total CO2 11 L (24-29) mmol/L VBG O2 Saturation 59 L (70-75) % VBG Base Excess -20.0 L (0-4) mmol/L Sodium 140 (137-145) mmol/L Potassium 4.8 (3.4-5.1) mmol/L Chloride 99 (98-107) mmol/L Carbon Dioxide < 5 L* (22-32) mmol/L BUN 7 (7-17) mg/dL Creatinine 0.80 (0.52-1.04) mg/dL Estimated GFR > 60.0 (>60) mL/min BUN/Creatinine Ratio 8.8 (6-22) Glucose 91 (70-100) mg/dL Calcium 8.8 (8.4-10.2) mg/dL Magnesium 1.9 (1.6-2.3) mg/dL Total Bilirubin 1.0 (0.2-1.3) mg/dL Conjugated Bilirubin 0.0 (0.0-0.3) md/dL Unconjugated Bilirubin 0.4 (0.0-1.1) mg/dL AST 136 H (14-36) IU/L ALT 80 H (9-52) IU/L Alkaline Phosphatase 91 (38-126) U/L Total Protein 9.2 H (6.3-8.2) g/dL Albumin 5.4 H (3.5-5.0) g/dL Globulin 3.8 (1.7-4.1) g/dL Albumin/Globulin Ratio 1.4 (1.0-2.8) Lipase 201 (23-300) U/L Ethyl Alcohol 162 mg/dL Ketones (<0.27) mmol/L 10/06/17 10/06/17 Range/Units 04:40 Unknown WBC (4.5-11.0) X10^3/uL RBC (4.0-5.2) X10^6/uL Hgb (12.0-16.0) g/dL Hct (36-46) % MCV (80-100) fL MCH (26-34) PG MCHC (30-36) % RDW (11.6-14.8) % Plt Count (150-400) X10^3/uL Neut % (Auto) (50-75) % Lymph % (Auto) (25-40) % [place] % (Auto) (3-14) % Eos % (Auto) (2-4) % Baso % (Auto) (0-2) % Neut # (Auto) (9833-4699) /uL RBC Morphology Polychromasia Macrocytosis VBG pH (7.31-7.41) VBG pCO2 (45-50) mmHg VBG pO2 (35-45) mmHg VBG HCO3 (24-28) mmol/L VBG Total CO2 (24-29) mmol/L VBG O2 Saturation (70-75) % VBG Base Excess (0-4) mmol/L Sodium 136 L (137-145) mmol/L Potassium 5.3 H (3.4-5.1) mmol/L Chloride 102 (98-107) mmol/L Carbon Dioxide 10 L (22-32) mmol/L BUN 7 (7-17) mg/dL Creatinine 0.60 (0.52-1.04) mg/dL Estimated GFR > 60.0 (>60) mL/min BUN/Creatinine Ratio 11.7 (6-22) Glucose 121 H (70-100) mg/dL Calcium 7.9 L (8.4-10.2) mg/dL Magnesium (1.6-2.3) mg/dL Total Bilirubin (0.2-1.3) mg/dL Conjugated Bilirubin (0.0-0.3) md/dL Unconjugated Bilirubin (0.0-1.1) mg/dL AST (14-36) IU/L ALT (9-52) IU/L Alkaline Phosphatase (38-126) U/L Total Protein (6.3-8.2) g/dL Albumin (3.5-5.0) g/dL Globulin (1.7-4.1) g/dL Albumin/Globulin Ratio (1.0-2.8) Lipase (23-300) U/L Ethyl Alcohol mg/dL Ketones 10.89 H (<0.27) mmol/L Critical Care Time Critical Care Time: Yes Total Critical Care Time: 30 Attestation: The high probability of a clinically significant, sudden or life threatening deterioration of the [cardiac/GI] system(s) required my full and direct attention, intervention and personal management. The aggregate critical care time was [30] minutes. This time is in addition to time spent performing reported procedures but includes the following: [x] Data Review and interpretation [x] Patient assessment and monitoring of vital signs [x] Documentation [x] Medication orders and management Discharge Plan Departure Patient Disposition: Admitted As Inpatient Clinical Impression: Alcoholic ketoacidosis, Alcohol withdrawal Discharge Date/Time: 10/06/17 02:24 Interventions: ED Discharge Assessment Last Done: 10/06/17 02:24 Admit Date/Time: 10/06/17 02:00 Admit Provider: Radha Valle
[2017-10-06] MEDS: LORazepam 2 MG/ML SYRINGE IV ×5 (01:49→21:53)
[2017-10-06] MEDS: SODIUM CHLORIDE 0.9% 1,000 ML 1000 ML IV (01:52)
[2017-10-06] MEDS: KETOROLAC 60 MG/2 ML VIAL 15 MG IV (02:14)
[2017-10-06] MEDS: LACTATED RINGERS 1,000 ML 200 ML IV ×2 (03:15→08:47)
[2017-10-06 05:16] LABS: BUN Creatinine Ratio 11.7 (6-22); Blood Urea Nitrogen 7 mg/dL (7-17); Calcium 7.9 mg/dL (8.4-10.2); Carbon Dioxide 10 mmol/L (22-32); Chloride 102 mmol/L (98-107); Estimated Glomerular Filt Rate > 60.0 mL/min (>60); Glucose 121 mg/dL (70-100); HEMOLYSIS 30 (0-50); Potassium 5.3 mmol/L (3.4-5.1); Sodium 136 mmol/L (137-145)
--- NOTE | 2017-10-06 05:38 | PC.NURSE ---
Admit Note, NOC shift: Pt admitted from ED for ETOH withdrawal, ketoacidosis. Pt AAOx3, pleasant and ambulatory from stretcher to bed. CIWA 15, complains of headache, acute lower back ache and N/V. Has vomited in ED, and vomited in ICU on admit. Seems more nauseated w/ mobility. Was given Zofran, Toradol and Ativan in ED, all with good effectiveness per pt. NPO, IVF's started LR @200mls/hr. ST 120's on tele, VSS. Voided per commode, noted current menses ADL's performed. Pt currently pleasant and very cooperative. Bed alarm on for moderate fall risk, discussed with pt pt understands. ICU status per Dr. Valle.
--- NOTE | 2017-10-06 09:01 | PM.HP.1 ---
History of Present Illness Date Patient Seen: 10/06/17 Time Patient Seen: 09:01 Chief complaint: ETOH Withdtawel, SOB Narrative: 32-year-old female with history of binge drinking presents with abdominal pain nausea vomiting. She did not have any hematemesis or melena. She was here back in July of this year with upper GI bleeding and was transferred to a tertiary care facility because of the possibility of varices. She alternates between. The sobriety and binge drinking og. This most recent episode she was drinking about 750 cc of vodka a day for the last 3 days. She has been drinking alone. She does live with her parents currently. She complains of nausea tremors and abdominal pain currently. Patient History Medical History Alcoholic ketoacidosis (Acute) Alcohol withdrawal (Acute) Alcoholism (Acute) Gastrointestinal bleeding (Acute) Alcoholism (Acute) Pancreatitis (Acute) Surgical History Status post adenoidectomy Family & Social History Social History: household members family Prior Living Arrangements House Safety & Behavioral: Feels Safe in Current Yes Environment Been Physically Hurt or No Threatened By a Person Suicidal Ideation Description None Tobacco & Substance use: Tobacco type cigarettes Smoking Status Current every day smoker alcohol intake current alcohol intake frequency other Substance Use Type does not use Meds Home Medications Medication Instructions Recorded Confirmed Type lisdexamfetamine [Vyvanse] 40 mg PO QDAY #0 01/13/17 10/06/17 History cyanocobalamin (vitamin B-12) 1,000 mcg IM X1 #1 ea 03/10/17 10/06/17 Rx omeprazole 20 mg PO DAILY #0 04/28/17 10/06/17 History lorazepam 1 mg tablet 1 mg PO BIDP PRN #30 tab 09/09/17 10/06/17 Rx Allergies Allergy/AdvReac Type Severity Reaction Status Date / Time No Known Allergies Allergy Unknown Verified 10/05/17 23:08 [NO KNOWN ALLERGIES] Review of Systems Review of Systems All systems reviewed & are unremarkable except as noted in HPI and below Exam Vital Signs (past 8 hours): - 10/06/17 02:11 10/06/17 02:24 10/06/17 02:55 Temperature 97.4 F L Pulse Rate 128 H 103 H 131 H Respiratory Rate 16 19 22 Blood Pressure 120/77 140/85 H Blood Pressure [Right Arm] 120/77 Pulse Oximetry 100 100 99 10/06/17 04:47 10/06/17 07:50 Temperature 99.0 F Pulse Rate 120 H Respiratory Rate 17 Blood Pressure 111/59 L Blood Pressure [Right Arm] Pulse Oximetry 97 97 Oxygen Delivery Method Room Air Narrative Exam Narrative: Pleasant young adult female well kept appears well nourished and appears agitated and tremulous. Oropharynx clear Neck is supple Lungs clear Heart tachycardic Abdomen soft mildly tender in the lower quadrants bilateral Lower extremities no edema Skin moist and warm Neuro exam awake alert oriented x3 somewhat agitated and tremors noted Objective Labs Result Diagrams: 10/05/17 23:17 10/06/17 04:40 Labs: Laboratory Results - last 24 hr 10/05/17 10/05/17 10/06/17 23:17 23:17 00:30 WBC 8.1 RBC 5.00 Hgb 17.4 H Hct 49.3 H MCV 98.4 MCH 34.8 H MCHC 35.4 RDW 16.2 H Plt Count 194 Neut % (Auto) 84.2 H Lymph % (Auto) 11.1 L [place] % (Auto) 4.2 Eos % (Auto) 0.0 L Baso % (Auto) 0.5 Neut # (Auto) 6900 H RBC Morphology Not Reportable Polychromasia 1+ H Macrocytosis 2+ H VBG pH 7.09 L* VBG pCO2 33.3 L VBG pO2 41 VBG HCO3 10 L VBG Total CO2 11 L VBG O2 Saturation 59 L VBG Base Excess -20.0 L Sodium 140 Potassium 4.8 Chloride 99 Carbon Dioxide < 5 L* BUN 7 Creatinine 0.80 Estimated GFR > 60.0 BUN/Creatinine Ratio 8.8 Glucose 91 Calcium 8.8 Magnesium 1.9 Total Bilirubin 1.0 Conjugated Bilirubin 0.0 Unconjugated Bilirubin 0.4 AST 136 H ALT 80 H Alkaline Phosphatase 91 Total Protein 9.2 H Albumin 5.4 H Globulin 3.8 Albumin/Globulin Ratio 1.4 Lipase 201 Ethyl Alcohol 162 Ketones 10/06/17 10/06/17 04:40 Unknown WBC RBC Hgb Hct MCV MCH MCHC RDW Plt Count Neut % (Auto) Lymph % (Auto) [place] % (Auto) Eos % (Auto) Baso % (Auto) Neut # (Auto) RBC Morphology Polychromasia Macrocytosis VBG pH VBG pCO2 VBG pO2 VBG HCO3 VBG Total CO2 VBG O2 Saturation VBG Base Excess Sodium 136 L Potassium 5.3 H Chloride 102 Carbon Dioxide 10 L BUN 7 Creatinine 0.60 Estimated GFR > 60.0 BUN/Creatinine Ratio 11.7 Glucose 121 H Calcium 7.9 L Magnesium Total Bilirubin Conjugated Bilirubin Unconjugated Bilirubin AST ALT Alkaline Phosphatase Total Protein Albumin Globulin Albumin/Globulin Ratio Lipase Ethyl Alcohol Ketones 10.89 H Assessment & Plan Plan: Assessment/Plan Narrative: One. Acute severe alcoholic keto acidosis with significant acidosis with a pH on a venous gas of 7.0. Plan to aggressively rehydrate with fluids watch her electrolytes carefully potassium initially high plan to keep checking this along with magnesium and phosphorus. Replete those as Net as needed. She does not actually fit the mold of a chronic alcoholic just does not appear malnourished so she is obviously a binge drinker. Thiamin folate given in the ER. 2. Acute alcohol withdrawal CIWA score of 15 or higher plan to give her Ativan as needed. 3. Chronic alcohol abuse dependence patient will be encouraged to seek treatment long-term Quality VTE Deep Vein Thrombosis/Pulmonary Embolism Present on Admission: No
[2017-10-06] MEDS: DEXTROSE 5%-0.9% NS 1,000 ML 200 ML IV ×3 (09:55→19:55)
[2017-10-06 10:03] LABS: Magnesium 1.7 mg/dL (1.6-2.3); Phosphorous 2.9 mg/dL (2.5-4.5)
[2017-10-06 14:58] LABS: Blood Urea Nitrogen 9 mg/dL (7-17); Calcium 7.9 mg/dL (8.4-10.2); Carbon Dioxide 22 mmol/L (22-32); Chloride 99 mmol/L (98-107); Estimated Glomerular Filt Rate > 60.0 mL/min (>60); Glucose 213 mg/dL (70-100); HEMOLYSIS < 15 (0-50); Potassium 3.9 mmol/L (3.4-5.1); Sodium 133 mmol/L (137-145)
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
[2017-10-06 15:42] LABS: Urine Amphetamines Negative (Negative); Urine Barbiturates Negative (Negative); Urine Benzodiazepines Positive (Negative); Urine Cocaine Negative (Negative); Urine MDMA Negative (Negative); Urine Methadone Negative (Negative); Urine Methamphetamines Negative (Negative); Urine Morphine/Opi cutoff 2000 Negative (Negative); Urine Oxycodone Negative (Negative); Urine Phencyclidine Negative (Negative); Urine Tetrahydrocannabinol Negative (Negative); Urine Tricyclic Antidepressant Negative (Negative)
--- NOTE | 2017-10-06 18:09 | PC.NURSE ---
1600- Patient states she is feeling anxious. Ciwaa was 6. Patient medicated per order. Will monitor.
[2017-10-07 00:48] VITALS: O2SAT 96
[2017-10-07 05:10] VITALS: BP 125/65; PULSE 90; RESP 16; TEMP 36.4; O2SAT 97
[2017-10-07 05:31] LABS: Add Manual Diff / Slide Review NO; Basophils Percent Auto 0.3 % (0-2); Eosinophils Percent Auto 0.7 % (2-4); Hematocrit 35.5 % (36-46); Hemoglobin 12.9 g/dL (12.0-16.0); Lymphocytes Percent Auto 32.7 % (25-40); Mean Corpuscular Hemoglobin 34.8 PG (26-34); Mean Corpuscular Volume 95.9 fL (80-100); Monocytes Percent Auto 7.1 % (3-14); Neutrophils Absolute Auto 1600 /uL (3000-5900); Neutrophils Percent Auto 59.2 % (50-75); Platelet Count 62 X10^3/uL (150-400); Red Cell Distribution Width 15.6 % (11.6-14.8); White Blood Cell Count 2.6 X10^3/uL (4.5-11.0)
[2017-10-07 05:32] LABS: Mean Corpuscular HGB Conc 36.3 % (30-36)
[2017-10-07 05:34] LABS: Alanine Aminotransferase 46 IU/L (9-52); Albumin 3.4 g/dL (3.5-5.0); Albumin Globulin Ratio 1.3 (1.0-2.8); Alkaline Phosphatase 56 U/L (38-126); Aspartate Aminotransferase 62 IU/L (14-36); Bilirubin Total 1.1 mg/dL (0.2-1.3); Blood Urea Nitrogen 5 mg/dL (7-17); Calcium 8.1 mg/dL (8.4-10.2); Carbon Dioxide 28 mmol/L (22-32); Chloride 103 mmol/L (98-107); Estimated Glomerular Filt Rate > 60.0 mL/min (>60); Globulin 2.6 g/dL (1.7-4.1); Glucose 113 mg/dL (70-100); HEMOLYSIS < 15 (0-50); Magnesium 1.9 mg/dL (1.6-2.3); Potassium 3.5 mmol/L (3.4-5.1); Sodium 136 mmol/L (137-145)
[2017-10-07 07:50] VITALS: BP 133/82; PULSE 94; RESP 18; TEMP 36.9; O2SAT 98
--- NOTE | 2017-10-07 09:45 | P.DS_ITS ---
History of Present Illness Chief complaint: ETOH Withpily, SOB Narrative: 32-year-old female with history of binge drinking presents with abdominal pain nausea vomiting. She did not have any hematemesis or melena. She was here back in July of this year with upper GI bleeding and was transferred to a tertiary care facility because of the possibility of varices. She alternates between. The sobriety and binge drinking og. This most recent episode she was drinking about 750 cc of vodka a day for the last 3 days. She has been drinking alone. She does live with her parents currently. She complains of nausea tremors and abdominal pain currently. Discharge Providers Date of admission: 10/06/17 02:00 Primary care physician: Yara Koroma PA-C Discharge provider: Radha Valle MD Discharge Date: 10/07/17 Summary Discharge Diagnosis: 1. Acute severe alcoholic ketoacidosis 2. Acute alcohol withdrawal with CIWA score of 15 at admission 3. Chronic alcohol dependency and abuse Hospital Course: Patient was treated conservatively with aggressive IV hydration. She had gradual improvement of her metabolic acidosis. She was also put on alcohol withdrawal protocol. She initially had a CIWA score of 15. Currently her score was 0. She was educated with the importance of quit alcohol drinking. Community resources for chemical dependency who was also provided by case management. Status at Discharge Functional status at discharge: independent ambulation Time Spent with Patient Greater than 30 minutes Exam Vital Signs (past 8 hours): - 10/07/17 05:10 10/07/17 07:50 Temperature 97.6 F 98.4 F Pulse Rate 90 94 H Respiratory Rate 16 18 Blood Pressure 125/65 H 133/82 H Pulse Oximetry 97 98 Oxygen Delivery Method Room Air Oxygen Flow Rate 0 Objective Labs Result Diagrams: 10/07/17 05:05 10/07/17 05:05 Labs: Laboratory Results - last 24 hr 10/06/17 10/06/17 10/06/17 02:30 04:40 14:10 WBC RBC Hgb Hct MCV MCH MCHC RDW Plt Count Neut % (Auto) Lymph % (Auto) [place] % (Auto) Eos % (Auto) Baso % (Auto) Neut # (Auto) Sodium 133 L Potassium 3.9 D Chloride 99 Carbon Dioxide 22 BUN 9 Creatinine 0.60 Estimated GFR > 60.0 BUN/Creatinine Ratio 15.0 Glucose 213 H Calcium 7.9 L Phosphorus 2.9 Magnesium 1.7 Total Bilirubin AST ALT Alkaline Phosphatase Total Protein Albumin Globulin Albumin/Globulin Ratio Nasal Screen MRSA (PCR) Negative for mrsa Urine Opiates Screen Ur Oxycodone Screen Urine Methadone Screen Ur Barbiturates Screen U Tricyclic Antidepress Ur Phencyclidine Scrn Ur Amphetamines Screen U Methamphetamines Scrn Ur MDMA Scrn (Ecstasy) U Benzodiazepines Scrn Urine Cocaine Screen U Marijuana (THC) Screen 10/06/17 10/07/17 10/07/17 15:00 05:05 05:05 WBC 2.6 L D RBC 3.70 L Hgb 12.9 Hct 35.5 L MCV 95.9 MCH 34.8 H MCHC 36.3 H RDW 15.6 H Plt Count 62 L Neut % (Auto) 59.2 D Lymph % (Auto) 32.7 D [place] % (Auto) 7.1 Eos % (Auto) 0.7 L Baso % (Auto) 0.3 Neut # (Auto) 1600 L Sodium 136 L Potassium 3.5 Chloride 103 Carbon Dioxide 28 BUN 5 L Creatinine 0.50 L Estimated GFR > 60.0 BUN/Creatinine Ratio 10.0 Glucose 113 H D Calcium 8.1 L Phosphorus Magnesium 1.9 Total Bilirubin 1.1 AST 62 H ALT 46 Alkaline Phosphatase 56 Total Protein 6.0 L Albumin 3.4 L Globulin 2.6 Albumin/Globulin Ratio 1.3 Nasal Screen MRSA (PCR) Urine Opiates Screen Negative Ur Oxycodone Screen Negative Urine Methadone Screen Negative Ur Barbiturates Screen Negative U Tricyclic Antidepress Negative Ur Phencyclidine Scrn Negative Ur Amphetamines Screen Negative U Methamphetamines Scrn Negative Ur MDMA Scrn (Ecstasy) Negative U Benzodiazepines Scrn Positive H Urine Cocaine Screen Negative U Marijuana (THC) Screen Negative Discharge Plan Discharge Plan Discharge Problem: Alcoholic ketoacidosis, Alcohol withdrawal Patient Disposition: Home, Self-Care Provider Discharge Instructions Diet: Diet as Tolerated Activity: as tolerated Discharge Data Primary Care Provider: Yara Koroma Attending Provider: Radha Valle Admchanning Date/Time: 10/06/17 02:00 Quality VTE Deep Vein Thrombosis/Pulmonary Embolism Present on Admission: No
[2017-10-07] MEDS: THIAMINE 100 MG TABLET PO (09:47)
[2017-10-07] MEDS: FOLIC ACID 1 MG TABLET PO (09:47)
[2017-10-07] MEDS: LORazepam 0.5 MG TABLET PO (10:03)
[2017-10-07 10:27] VITALS: O2SAT 97
[2017-10-07] MEDS: LORazepam 1 MG TABLET PO (11:22)
== END 2017-10-07 12:20 | disposition home or self-care (01) | DRG 425 ==
LOC: ED 10-06 01:36 → ICU 10-06 02:01
PROVIDERS: Internal Medicine; Admitting Provider Internal Medicine; Emergency Provider Emergency Medicine; PCP Physician Assistant; Visit Provider Internal Medicine
DX: E87.2 Acidosis (principal); F10.230 Alcohol dependence with withdrawal, uncomplicated; F17.210 Nicotine dependence, cigarettes, uncomplicated; Y90.6 Blood alcohol level of 120-199 mg/100 ml
CPT/HCPCS: 36591; 80048; 80053; 80076; 80305; 80320; 82009; 82075; 82805; 83690; 83735; 84100; 85025; 87797; 93005; 96361; 96365; 96375; 96376; 99284; 99285; J1885; J2060; J2405

== ENCOUNTER → 2017-10-20 16:56 | Outpatient (CLI) | payer OTHER, MEDICAID, SELFPAY ==
[2017-10-06 02:10] VITALS: BMI 23.8
--- NOTE | 2017-10-20 16:58 | DI.RAD.S_ITS ---
PROCEDURE: XR FOOT RT MIN 3V INDICATIONS: Toe pain on left foot TECHNIQUE: 3 views of the foot were acquired. COMPARISON: [facility], , FOOT 3V LEFT, 05/13/2016, 15:47. FINDINGS: Bones: There is a mildly displaced fracture of the middle phalanx of the 2nd toe, with intra-articular involvement. No additional fractures are detected. No suspicious bony lesions. Incidental note is made of an accessory ossicle, an os peroneum. Soft tissues: No tibiotalar joint effusion. Achilles tendon appears normal. IMPRESSION: Mildly displaced fracture of the middle phalanx of the 2nd toe. Dictated by: Damir Douglas M.D. on 10/20/2017 at 16:28 Approved by: Damir Douglas M.D. on 10/20/2017 at 16:30
== END ==
PROVIDERS: PCP Family Medicine; Visit Provider Family Medicine
DX: S92.522A Displaced fracture of middle phalanx of left lesser toe(s), initial encounter for closed fracture (principal); M79.675 Pain in left toe(s)
CPT/HCPCS: 73630

== ENCOUNTER 2018-01-13 21:20 | Emergency (ER) | payer OTHER, MEDICAID, SELFPAY ==
[2017-10-06 02:10] VITALS: BMI 23.8
[2018-01-13 21:25] VITALS: BP 168/118; PULSE 102; RESP 18; TEMP 36.2; O2SAT 99; BMI 23.6
[2018-01-13] MEDS: LORazepam 2 MG/ML SYRINGE IM (22:46)
[2018-01-13] MEDS: diazePAM 5 MG TABLET PO (23:35)
[2018-01-13 23:45] VITALS: BP 126/97; PULSE 111; RESP 17; O2SAT 97
--- NOTE | 2018-01-14 03:15 | ED.ALCOHOL ---
HPI - Alcohol General Chief Complaint: Toxicology Problem Stated Complaint: STATES FELL OFF THE WAGON Time Seen by Provider: 01/13/18 21:45 History of Present Illness HPI narrative: 32 year old female smoker and heavy drinker presents with fear that she will eventually have trouble with alcohol withdrawal. She had largely been sober for the past few months but has been drinking heavily and for the past 6 days. She states she drinks a 0.5 gal every other day. She has had significant withdrawal symptoms in the past and has been through rehab. Her last drink was only a few hours ago and she is admittedly under the influence as we speak. She denies any resting tremors, agitation or diaphoresis MD complaint: alcohol intoxication and alcohol withdrawal Last drink: just prior to this admission Chronic alcohol use: Yes Previous visits for alcohol intoxication: Yes Recent trauma: No Associated symptoms: denies other symptoms Treatments prior to arrival: none Related Data Home Medications Medication Instructions Recorded Confirmed lisdexamfetamine [Vyvanse] 40 mg PO QDAY #0 01/13/17 10/20/17 omeprazole 20 mg PO DAILY #0 04/28/17 10/20/17 cyanocobalamin (vit B-12) 3,000 3,000 mcg SL DAILY 10/20/17 10/20/17 mcg/mL sublingual drops Previous Rx's Medication Instructions Recorded lorazepam 1 mg PO BID-TID PRN #30 tab 10/07/17 zolpidem 10 mg tablet 10 mg PO BEDTIME #30 tab 10/20/17 lorazepam 1 mg tablet 1 mg PO BIDP PRN #30 tab 11/30/17 lorazepam [Ativan] See Label Instructions .ROUTE 01/13/18 .COMPLEX PRN #19 tab ondansetron [Zofran ODT] 4 mg PO TID-QID PRN #14 tab 01/13/18 Allergies Allergy/AdvReac Type Severity Reaction Status Date / Time No Known Allergies Allergy Unknown Verified 10/20/17 15:33 [NO KNOWN ALLERGIES] Review of Systems Review of Systems All systems reviewed & are unremarkable except as noted in HPI and below Constitutional Denies chills, Denies fever(s), Denies lethargy and Denies weakness Eyes Denies change in vision, Denies eye discharge, Denies irritation and Denies loss of vision ENT Ears, Nose, Mouth, and Throat: Denies change in voice, Denies neck pain and Denies sore throat Cardiovascular Denies chest pain, Denies irregular heart rhythm, Denies lightheadedness, Denies palpitations, Denies dyspnea, Denies dyspnea on exertion and Denies orthopnea Respiratory Denies cough, Denies dyspnea, Denies dyspnea on exertion and Denies wheezing Gastrointestinal Gastrointestinal: Denies abdominal pain, Denies change in bowel habits, Denies diarrhea, Denies nausea and Denies vomiting Genitourinary Denies hematuria, Denies flank pain, Denies urinary incontinence and Denies urinary urgency Musculoskeletal Denies neck pain Integumentary/Breasts Denies pruritus, Denies erythema, Denies rash and Denies wounds Neurologic Denies confusion, Denies loss of vision and Denies weakness Psychiatric Denies anxiety, Denies confusion, Denies depression, Denies homicidal ideation and Denies suicidal ideation Endocrine Denies palpitations Hematologic/Lymphatic Denies easy bruising Allergic/Immunologic Denies wheezing [facility] Medical History Alcoholic ketoacidosis (Acute) Alcohol withdrawal (Acute) Alcoholism (Acute) Alcoholism (Acute) Gastrointestinal bleeding (Acute) Pancreatitis (Acute) ADHD (attention deficit hyperactivity disorder) (Chronic 2001) Anxiety (Chronic Unknown) Vitamin B 12 deficiency (Chronic Unknown) Chickenpox (Resolved 1990) Foot pain (Resolved 2011) Surgical History S/P wrist surgery (Resolved ~2011) Status post adenoidectomy (1988) Family History Father No problems noted. Mother No problems noted. Social History household members: family Smoking Status: Current every day smoker Tobacco: How many years used: 10 alcohol intake: never substance use type: does not use Exam Narrative Exam Narrative: GENERAL: A&O x3, GCS 15. This is a well-nourished, well-developed patient, in mild distress. Smells of alcohol HEAD: Atraumatic. Normocephalic. No temporal or scalp tenderness. EYES: Pupils equal round and reactive. Extraocular motions intact. No scleral icterus. No injection or drainage. ENT: Nose without bleeding, purulent drainage or septal hematoma. Throat without erythema, tonsillar hypertrophy or exudate. Uvula midline. Airway patent. NECK: Trachea midline. No JVD or lymphadenopathy. Supple, nontender, no meningeal signs. CARDIOVASCULAR: Regular rate and rhythm without murmurs, gallops, or rubs. RESPIRATORY: Clear to auscultation. Breath sounds equal bilaterally. No wheezes, rales, or rhonchi. GASTROINTESTINAL: Abdomen soft, non-tender, nondistended. No hepato-splenomegaly, or palpable masses. No guarding. EXTREMITIES: No clubbing, cyanosis, or edema. No joint tenderness, effusion, or edema noted. BACK: Nontender without deformity or crepitance. No flank tenderness. NEURO: AOx3. SKIN: No rash or erythema. Initial Vital Signs Initial Vital Signs: Vital Signs Temperature 97.2 F L 01/13/18 21:25 Pulse Rate 102 H 01/13/18 21:25 Respiratory Rate 18 01/13/18 21:25 Blood Pressure 168/118 H 01/13/18 21:25 Pulse Oximetry 99 01/13/18 21:25 Course Orders Ordered: Discontinued Medications Diazepam (Valium) 5 mg PO NOW ONE Stop: 01/13/18 23:22 Last Admin: 01/13/18 23:35 Dose: 5 mg Lorazepam (Ativan) 2 mg IM NOW ONE Stop: 01/13/18 22:43 Last Admin: 01/13/18 22:46 Dose: 2 mg Vital Signs - 8 hr 01/13/18 21:25 01/13/18 23:45 Temperature 97.2 F L Pulse Rate 102 H 111 H Respiratory Rate 18 17 Blood Pressure 168/118 H 126/97 H Pulse Oximetry 99 97 MDM - Alcohol Differential Diagnosis Differential diagnosis: Likely alcohol intoxication Medical Records Attestation: I reviewed the patient's medical records. Lab Data Labs: Point of Care Testing Test Results Negative MDM Narrative Medical decision making narrative: Patient AOx3, demonstrating no signs of withdrawal. She is AOx3, no tremor, no tachycardia, agitation, or hallucinations. She was given Ativan IM and valium to take at home as well as an Ativan taper. Discharge Plan Departure Patient Disposition: Home Clinical Impression: Alcohol withdrawal Discharge Date/Time: 01/13/18 23:45 Interventions: ED Discharge Assessment Last Done: 01/13/18 23:45 Instructions: DI for Alcohol Abuse Activity Restrictions/Additional Instructions: *You have been diagnosed with [ alcohol withdrawal ] *What to do: *Take medications as directed *Follow up with your primary care provider in 2-3 days, call for an appointment. Let them know you were seen in the Emergency Department and that we ask that you be seen in follow up *Return to ER if you should have any new, worsening or concerning symptoms Prescriptions: New lorazepam [Ativan] 1 mg tablet See Label Instructions .ROUTE .COMPLEX PRN (Reason: alcohol withdrawal) Qty: 19 RF: 0 ondansetron [Zofran ODT] 4 mg tablet,disintegrating 4 mg PO TID-QID PRN (Reason: nausea and vomiting) Qty: 14 RF: 0 No Action cyanocobalamin (vitamin B-12) 3,000 mcg/mL drops 3,000 mcg SL DAILY RF: 0 zolpidem 10 mg tablet 10 mg PO BEDTIME Qty: 30 RF: 0 lisdexamfetamine [Vyvanse] 40 MG capsule 40 mg PO QDAY Qty: 0 RF: 0 omeprazole 20 mg Tablet,Delayed Release (Dr/Ec) 20 mg PO DAILY Qty: 0 RF: 0 lorazepam [Ativan] 1 mg tablet 1 mg PO BIDP PRN (Reason: anxiety) Qty: 30 RF: 0 lorazepam 1 mg tablet 1 mg PO BID-TID PRN (Reason: alcohol withdrawal) Qty: 30 RF: 0 Referrals: Leticia Montes DO [Primary Care Provider] -
== END 2018-01-13 23:45 | disposition home or self-care (01) ==
PROVIDERS: Emergency Provider Emergency Medicine; Family Provider Family Medicine; PCP Family Medicine
DX: F10.239 Alcohol dependence with withdrawal, unspecified (principal)
CPT/HCPCS: 81025; 96372; 99282; 99283; J2060

== ENCOUNTER 2018-01-20 21:02 | Inpatient (IN) | payer OTHER, MEDICAID, SELFPAY ==
[2017-10-06 02:10] VITALS: BMI 23.8
[2018-01-20 21:12] VITALS: BP 148/114; PULSE 126; RESP 15; TEMP 36.6; O2SAT 93; BMI 23.6
--- NOTE | 2018-01-20 21:29 | DI.CT.S_ITS ---
PROCEDURE: CT ABDOMEN PELVIS W CON INDICATIONS: epigastric pain, umbilical pain TECHNIQUE: After the administration of intravenous contrast, 5 mm thick sections acquired from the diaphragm to the symphysis. 5 mm coronal and sagittal reformats were acquired. For radiation dose reduction, the following was used: automated exposure control, adjustment of mA and/or kV according to patient size. COMPARISON: [facility], CT, CT ABDOMEN PELVIS W CON, 08/04/2017, 4:10. FINDINGS: Image quality: Excellent. ABDOMEN: Lung bases: Lung bases are clear. Heart size is normal. Solid organs: Liver is mildly enlarged in size and enhancement, but the liver appears diffusely fatty infiltrated. Gallbladder appears normal. Biliary system is non dilated. Pancreas enhances mildly heterogeneously at the pancreatic head and neck and uncinate process, and there is prominent adjacent peripancreatic edema that extends to the bowel margins, and is associated with fluid within the subhepatic space and right paracolic gutter and to a lesser degree the left colic gutter and extending into the pelvis. Spleen is enlarged in size at 14.1 cm craniocaudad and normal in enhancement. No adrenal nodules. Kidneys demonstrate normal size and enhancement, without hydronephrosis. Peritoneum and bowel: Bowel loops demonstrate normal wall thickness and caliber. No free fluid or air. There is mild small bowel inflammation adjacent to the area of maximal retroperitoneal and mesenteric edema at the right upper quadrant. Nodes and vessels: No retroperitoneal or mesenteric adenopathy by size criteria. Aorta and inferior vena cava are normal in size. Miscellaneous: No ventral hernias. PELVIS: Genitourinary: Bladder wall thickness is normal. Miscellaneous: No inguinal hernias or adenopathy. Free fluid extending from the abdomen into the pelvis is mild and overall quantity. No abscess is found. Bones: No suspicious bony lesions. No vertebral body compression fractures. IMPRESSION: Acute severe pancreatitis, as the likely cause for pancreatic head neck and uncinate process pancreatic parenchymal heterogeneity and the adjacent peripancreatic prominent edema. Pancreatic ascites is the likely cause for the free fluid noted. Hepatomegaly and splenomegaly. Fatty infiltration throughout the liver. Dictated by: Suleman Ariza M.D. on 01/21/2018 at 8:45 Approved by: Suleman Ariza M.D. on 01/21/2018 at 8:48
--- NOTE | 2018-01-20 21:33 | ED.ABDPAIN ---
HPI - Abdominal Pain General Chief Complaint: Abdominal Pain Stated Complaint: ABDOMEN PAIN X3 DAYS Time Seen by Provider: 01/20/18 21:14 Source: patient Mode of arrival: ambulatory Limitations: no limitations History of Present Illness HPI narrative: The patient is a 32-year-old female who presents with epigastric abdominal pain. She has a known alcoholic. She has had his admissions for alcoholic ketoacidosis in the past. She recently fell off the wagon last week she was given Ativan and Zofran. She had 2 shots at noon to help keep shakes away. The last 2 days she has had this epigastric pain she has been nauseated but using the Zofran. She has not thrown up. She has also previously had GI bleeding which she denies at this time. She has had some episodes of diarrhea which are nonbloody. She denies any fever or chills. MD complaint: abdominal pain Related Data Home Medications Medication Instructions Recorded Confirmed lisdexamfetamine [Vyvanse] 40 mg PO QDAY #0 01/13/17 01/20/18 omeprazole 20 mg PO DAILY #0 04/28/17 01/20/18 cyanocobalamin (vit B-12) 3,000 3,000 mcg SL DAILY 10/20/17 01/20/18 mcg/mL sublingual drops Previous Rx's Medication Instructions Recorded lorazepam 1 mg PO BID-TID PRN #30 tab 10/07/17 zolpidem 10 mg tablet 10 mg PO BEDTIME #30 tab 10/20/17 lorazepam 1 mg tablet 1 mg PO BIDP PRN #30 tab 11/30/17 lorazepam [Ativan] See Label Instructions .ROUTE 01/13/18 .COMPLEX PRN #19 tab ondansetron [Zofran ODT] 4 mg PO TID-QID PRN #14 tab 01/13/18 Allergies Allergy/AdvReac Type Severity Reaction Status Date / Time No Known Allergies Allergy Unknown Verified 01/20/18 21:12 [NO KNOWN ALLERGIES] Review of Systems Review of Systems All systems reviewed & are unremarkable except as noted in HPI and below Constitutional Denies chills, Denies fever(s), Denies lethargy and Denies weakness Eyes Denies blurry vision and Denies change in vision Cardiovascular Denies chest pain, Denies irregular heart rhythm, Denies lightheadedness, Denies palpitations, Denies dyspnea, Denies dyspnea on exertion and Denies orthopnea Respiratory Denies cough, Denies dyspnea, Denies dyspnea on exertion and Denies wheezing Gastrointestinal Gastrointestinal: Reports as per HPI Musculoskeletal Denies back pain, Denies muscle weakness, Denies numbness and Denies tingling Integumentary/Breasts Denies pruritus, Denies erythema, Denies rash and Denies wounds Neurologic Denies numbness, Denies tingling and Denies weakness Endocrine Denies palpitations Allergic/Immunologic Denies wheezing [facility] Social History household members: family Smoking Status: Current every day smoker Tobacco: How many years used: 10 alcohol intake: never substance use type: does not use Exam Initial Vital Signs Initial Vital Signs: Vital Signs Temperature 97.9 F 01/20/18 21:12 Pulse Rate 126 H 01/20/18 21:12 Respiratory Rate 15 01/20/18 21:12 Blood Pressure 148/114 H 01/20/18 21:12 Pulse Oximetry 93 01/20/18 21:12 Const General: cooperative Nutritional Appearance: average body habitus Orientation: alert, awake and oriented x3 HENMT Mouth: moist mucous membranes Neck Neck: normal visual inspection and no meningeal signs Chest Chest: normal inspection of the chest Resp Effort & Inspection: normal respiratory effort and able to speak in complete sentences Auscultation: clear to auscultation bilaterally, no rales, no rhonchi and no wheezes Cardio Rate: regular rate Rhythm: regular rhythm Heart Sounds: no click, no gallops, no murmurs and no rubs Pulses: normal peripheral pulses GI Palpation: soft, No firm, No guarding and tender (Mid epigastric pain all across abdomen no Brush sign and no right upper quadrant pain) Skin General: no rashes or lesions noted, No jaundice and No petechiae Neuro General: alert, oriented x3, gait normal and no focal motor deficits Speech: speech normal Course Orders Ordered: ED Orders 01/20/18 21:29 CT abdomen pelvis w con Stat 01/20/18 21:40 Complete Blood Count AUTO DIFF Stat Comprehensive Metabolic Panel Stat Lipase Stat 01/21/18 00:29 Lactate Dehydrogenase Stat 01/21/18 00:45 Consult to Physician Routine 01/21/18 05:00 Comprehensive Metabolic Panel Stat Lipase Stat Acetaminophen (Tylenol) 650 mg PO Q6HR PRN PRN Reason: As Needed for Fever/Mild Pain Hydromorphone HCl (Dilaudid) 0.5 mg IV Q3H PRN PRN Reason: Pain, Moderate (4-6) Last Admin: 01/21/18 01:02 Dose: 0.5 mg Lactated Ringer's (Lactated Ringers) 1,000 mls @ 250 mls/hr IV CONT COUNTS INCLUDE 234 BEDS AT THE [facility] Last Admin: 01/21/18 01:01 Dose: 250 mls/hr Imipenem/Cilastatin Sodium 500 (mg/ Sodium Chloride) 100 mls @ 200 mls/hr IV Q8H JOSEFINA Lorazepam (Ativan) 0 mg IV CIWAPRN PRN; Protocol PRN Reason: Alcohol Withdrawal Ondansetron HCl (Zofran) 4 mg IV Q4HR PRN PRN Reason: Nausea And Vomiting Discontinued Medications Hydromorphone HCl (Dilaudid) 0.5 mg IV NOW ONE Stop: 01/20/18 22:43 Last Admin: 01/20/18 23:36 Dose: 0.5 mg Sodium Chloride (Normal Saline 0.9%) 1,000 mls @ 1,000 mls/hr IV CONT COUNTS INCLUDE 234 BEDS AT THE [facility] Last Infusion: 01/21/18 00:23 Dose: 0 mls/hr Infusion: 01/20/18 23:25 Dose: 1,000 mls/hr Admin: 01/20/18 23:12 Dose: 200 mls/hr Infusion: 01/20/18 22:45 Dose: 1,000 mls/hr Admin: 01/20/18 21:45 Dose: 1,000 mls/hr Sodium Chloride (Normal Saline 0.9%) 1,000 mls @ 200 mls/hr IV CONT COUNTS INCLUDE 234 BEDS AT THE [facility] Last Admin: 01/20/18 23:43 Dose: Imipenem/Cilastatin Sodium 500 (mg/ Sodium Chloride) 100 mls @ 200 mls/hr IV NOW ONE Stop: 01/20/18 23:26 Last Admin: 01/21/18 00:13 Dose: 200 mls/hr Morphine Sulfate (Morphine) 4 mg IV NOW ONE Stop: 01/20/18 21:29 Last Admin: 01/20/18 21:51 Dose: 4 mg Ondansetron HCl (Zofran) 4 mg IV NOW ONE Stop: 01/20/18 21:29 Last Admin: 01/20/18 21:50 Dose: 4 mg Pantoprazole Sodium (Protonix) 40 mg IV NOW ONE Stop: 01/20/18 21:29 Last Admin: 01/20/18 21:45 Dose: 40 mg Vital Signs - 8 hr 01/20/18 21:12 01/20/18 23:21 01/21/18 00:32 Temperature 97.9 F Pulse Rate 126 H 104 H 110 H Respiratory Rate 15 18 16 Blood Pressure 148/114 H 115/80 Blood Pressure [Left Arm] 117/80 Pulse Oximetry 93 96 92 01/21/18 00:45 Temperature 97.6 F Pulse Rate 98 H Respiratory Rate 16 Blood Pressure 119/79 Blood Pressure [Left Arm] Pulse Oximetry 99 MDM - Abdominal Pain Medical Records Attestation: I reviewed the patient's medical records. Lab Data Attestation: I reviewed the patient's lab results. Result diagrams: 01/20/18 21:40 01/20/18 21:40 Lab Results 01/20/18 01/20/18 01/20/18 Range/Units 00:32 21:40 21:40 WBC 6.6 (4.5-11.0) X10^3/uL RBC 4.25 (4.0-5.2) X10^6/uL Hgb 15.1 (12.0-16.0) g/dL Hct 42.0 (36-46) % MCV 98.9 (80-100) fL MCH 35.6 H (26-34) PG MCHC 36.0 (30-36) % RDW 17.4 H (11.6-14.8) % Plt Count 76 L (150-400) X10^3/uL Neut % (Auto) 74.0 (50-75) % Lymph % (Auto) 17.4 L (25-40) % [place] % (Auto) 7.9 (3-14) % Eos % (Auto) 0.3 L (2-4) % Baso % (Auto) 0.4 (0-2) % Neut # (Auto) 4900 (2596-6663) /uL Sodium 141 (137-145) mmol/L Potassium 3.5 (3.4-5.1) mmol/L Chloride 97 L (98-107) mmol/L Carbon Dioxide 23 (22-32) mmol/L BUN 6 L (7-17) mg/dL Creatinine 0.50 L (0.52-1.04) mg/dL Estimated GFR > 60.0 (>60) mL/min BUN/Creatinine Ratio 12.0 (6-22) Glucose 104 H (70-100) mg/dL Calcium 8.1 L (8.4-10.2) mg/dL Total Bilirubin 1.1 (0.2-1.3) mg/dL AST 114 H (14-36) IU/L ALT 35 (9-52) IU/L Alkaline Phosphatase 80 (38-126) U/L Lactate Dehydrogenase 505 (313-618) U/L Total Protein 7.5 (6.3-8.2) g/dL Albumin 4.5 (3.5-5.0) g/dL Globulin 3.0 (1.7-4.1) g/dL Albumin/Globulin Ratio 1.5 (1.0-2.8) Lipase 3814 H (23-300) U/L Point of care testing: Point of Care Testing Test Results Negative Urine Dip Bedside Urine Glucose Negative Bedside Urine Bilirubin - Negative Bedside Urine Ketone - Negative Urine Specific [place] 1.010 Bedside Urine Occult Blood - Negative Bedside Urine pH 6.0 Bedside Urine Protein - Negative Bedside Urine Urobilinogen - Negative Bedside Urine Nitrite - Negative Bedside Urine Leukocytes - Negative Esterase Imaging Data CT scan - abdomen: 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 No free air. There is diminished enhancement of head and neck region of the pancreas concerning for early necrosis. No pancreatic contour abnormality or pancreatic ductal dilatation is identified. There is wall thickening and luminal narrowing of the ascending colon which may represent focal colitis. Colitis cannot be so the secondary to surrounding. Pancreatic fluid. There is some fluid-filled mildly distended small bowel loops in the abdomen pelvis which could represent ileus versus early or partial small-bowel obstruction. Exact transition point is difficult to identify. Fatty infiltration of liver. MDM Narrative Medical decision making narrative: Patient's pain is much better controlled with Dilaudid. CT concerning for early necrosis. She is empirically started on imipenem. She looks nontoxic is appears well conversing with her father easily. I discussed case with Dr. Dillard. He is aware of early necrosis on CT is discussed transfer versus admit here. At this time will admit here IV fluids pain control and monitor. Tavo's Criteria for Pancreatitis Mortality from [employer] on 01/21/2018 All calculations should be rechecked by clinician prior to use RESULT SUMMARY: 1 points Tavo?s Criteria (On Admission) Severe pancreatitis unlikely. 1 points Tavo?s Criteria (Cumulative) 1% predicted mortality. INPUTS: WBC > 16k ?> 0 = No Age > 55 ?> 0 = No Glucose >200 mg/dL (>10 mmol/L) ?> 0 = No AST > 250 ?> 0 = No LDH > 350 ?> 1 = Yes Hct drop >10% from admission ?> 0 = No BUN increase >5 mg/dL (>1.79 mmol/L) from admission ?> 0 = No Ca <8 mg/dL (<2 mmol/L) within 48 hours ?> 0 = No Arterial pO2 <60 mmHg within 48 hours ?> 0 = No Base deficit (24 - HCO3) >4 mg/dL within 48 hours ?> 0 = No Fluid needs > 6L within 48 hours ?> 0 = No Discharge Plan Departure Patient Disposition: Admitted As Inpatient Clinical Impression: Acute pancreatitis Discharge Date/Time: 01/21/18 00:39 Interventions: ED Discharge Assessment Last Done: 01/21/18 00:33 Admit Date/Time: 01/20/18 23:47 Admit Provider: Tucker Dillard
--- NOTE | 2018-01-20 21:40 | ED_ITS ---
HPI - Abdominal Pain General Chief Complaint: Abdominal Pain Stated Complaint: ABDOMEN PAIN X3 DAYS Time Seen by Provider: 01/20/18 21:14 Source: patient Mode of arrival: ambulatory Limitations: no limitations History of Present Illness HPI narrative: The patient is a 32-year-old female who presents with epigastric abdominal pain. She has a known alcoholic. She has had his admissions for alcoholic ketoacidosis in the past. She recently fell off the wagon last week she was given Ativan and Zofran. She had 2 shots at noon to help keep shakes away. The last 2 days she has had this epigastric pain she has been nauseated but using the Zofran. She has not thrown up. She has also previously had GI bleeding which she denies at this time. She has had some episodes of diarrhea which are nonbloody. She denies any fever or chills. MD complaint: abdominal pain Related Data Home Medications Medication Instructions Recorded Confirmed lisdexamfetamine [Vyvanse] 40 mg PO QDAY #0 01/13/17 01/20/18 omeprazole 20 mg PO DAILY #0 04/28/17 01/20/18 cyanocobalamin (vit B-12) 3,000 3,000 mcg SL DAILY 10/20/17 01/20/18 mcg/mL sublingual drops Previous Rx's Medication Instructions Recorded lorazepam 1 mg PO BID-TID PRN #30 tab 10/07/17 zolpidem 10 mg tablet 10 mg PO BEDTIME #30 tab 10/20/17 lorazepam 1 mg tablet 1 mg PO BIDP PRN #30 tab 11/30/17 lorazepam [Ativan] See Label Instructions .ROUTE 01/13/18 .COMPLEX PRN #19 tab ondansetron [Zofran ODT] 4 mg PO TID-QID PRN #14 tab 01/13/18 Allergies Allergy/AdvReac Type Severity Reaction Status Date / Time No Known Allergies Allergy Unknown Verified 01/20/18 21:12 [NO KNOWN ALLERGIES] Review of Systems Review of Systems All systems reviewed & are unremarkable except as noted in HPI and below Constitutional Denies chills, Denies fever(s), Denies lethargy and Denies weakness Eyes Denies blurry vision and Denies change in vision Cardiovascular Denies chest pain, Denies irregular heart rhythm, Denies lightheadedness, Denies palpitations, Denies dyspnea, Denies dyspnea on exertion and Denies orthopnea Respiratory Denies cough, Denies dyspnea, Denies dyspnea on exertion and Denies wheezing Gastrointestinal Gastrointestinal: Reports as per HPI Musculoskeletal Denies back pain, Denies muscle weakness, Denies numbness and Denies tingling Integumentary/Breasts Denies pruritus, Denies erythema, Denies rash and Denies wounds Neurologic Denies numbness, Denies tingling and Denies weakness Endocrine Denies palpitations Allergic/Immunologic Denies wheezing REPLACED BY [facility] Social History household members: family Smoking Status: Current every day smoker Tobacco: How many years used: 10 alcohol intake: never substance use type: does not use Exam Initial Vital Signs Initial Vital Signs: Vital Signs Temperature 97.9 F 01/20/18 21:12 Pulse Rate 126 H 01/20/18 21:12 Respiratory Rate 15 01/20/18 21:12 Blood Pressure 148/114 H 01/20/18 21:12 Pulse Oximetry 93 01/20/18 21:12 Const General: cooperative Nutritional Appearance: average body habitus Orientation: alert, awake and oriented x3 HENMT Mouth: moist mucous membranes Neck Neck: normal visual inspection and no meningeal signs Chest Chest: normal inspection of the chest Resp Effort & Inspection: normal respiratory effort and able to speak in complete sentences Auscultation: clear to auscultation bilaterally, no rales, no rhonchi and no wheezes Cardio Rate: regular rate Rhythm: regular rhythm Heart Sounds: no click, no gallops, no murmurs and no rubs Pulses: normal peripheral pulses GI Palpation: soft, No firm, No guarding and tender (Mid epigastric pain all across abdomen no Brush sign and no right upper quadrant pain) Skin General: no rashes or lesions noted, No jaundice and No petechiae Neuro General: alert, oriented x3, gait normal and no focal motor deficits Speech: speech normal Course Orders Ordered: ED Orders 01/20/18 21:29 CT abdomen pelvis w con Stat 01/20/18 21:40 Complete Blood Count AUTO DIFF Stat Comprehensive Metabolic Panel Stat Lipase Stat 01/21/18 00:29 Lactate Dehydrogenase Stat 01/21/18 00:45 Consult to Physician Routine 01/21/18 05:00 Comprehensive Metabolic Panel Stat Lipase Stat Acetaminophen (Tylenol) 650 mg PO Q6HR PRN PRN Reason: As Needed for Fever/Mild Pain Hydromorphone HCl (Dilaudid) 0.5 mg IV Q3H PRN PRN Reason: Pain, Moderate (4-6) Last Admin: 01/21/18 01:02 Dose: 0.5 mg Lactated Ringer's (Lactated Ringers) 1,000 mls @ 250 mls/hr IV [facility] Last Admin: 01/21/18 01:01 Dose: 250 mls/hr Imipenem/Cilastatin Sodium 500 (mg/ Sodium Chloride) 100 mls @ 200 mls/hr IV Q8H JOSEFINA Lorazepam (Ativan) 0 mg IV CIWAPRN PRN; Protocol PRN Reason: Alcohol Withdrawal Ondansetron HCl (Zofran) 4 mg IV Q4HR PRN PRN Reason: Nausea And Vomiting Discontinued Medications Hydromorphone HCl (Dilaudid) 0.5 mg IV NOW ONE Stop: 01/20/18 22:43 Last Admin: 01/20/18 23:36 Dose: 0.5 mg Sodium Chloride (Normal Saline 0.9%) 1,000 mls @ 1,000 mls/hr IV [facility] Last Infusion: 01/21/18 00:23 Dose: 0 mls/hr Infusion: 01/20/18 23:25 Dose: 1,000 mls/hr Admin: 01/20/18 23:12 Dose: 200 mls/hr Infusion: 01/20/18 22:45 Dose: 1,000 mls/hr Admin: 01/20/18 21:45 Dose: 1,000 mls/hr Sodium Chloride (Normal Saline 0.9%) 1,000 mls @ 200 mls/hr IV [facility] Last Admin: 01/20/18 23:43 Dose: Imipenem/Cilastatin Sodium 500 (mg/ Sodium Chloride) 100 mls @ 200 mls/hr IV NOW ONE Stop: 01/20/18 23:26 Last Admin: 01/21/18 00:13 Dose: 200 mls/hr Morphine Sulfate (Morphine) 4 mg IV NOW ONE Stop: 01/20/18 21:29 Last Admin: 01/20/18 21:51 Dose: 4 mg Ondansetron HCl (Zofran) 4 mg IV NOW ONE Stop: 01/20/18 21:29 Last Admin: 01/20/18 21:50 Dose: 4 mg Pantoprazole Sodium (Protonix) 40 mg IV NOW ONE Stop: 01/20/18 21:29 Last Admin: 01/20/18 21:45 Dose: 40 mg Vital Signs - 8 hr 01/20/18 21:12 01/20/18 23:21 01/21/18 00:32 Temperature 97.9 F Pulse Rate 126 H 104 H 110 H Respiratory Rate 15 18 16 Blood Pressure 148/114 H 115/80 Blood Pressure [Left Arm] 117/80 Pulse Oximetry 93 96 92 01/21/18 00:45 Temperature 97.6 F Pulse Rate 98 H Respiratory Rate 16 Blood Pressure 119/79 Blood Pressure [Left Arm] Pulse Oximetry 99 MDM - Abdominal Pain Medical Records Attestation: I reviewed the patient's medical records. Lab Data Attestation: I reviewed the patient's lab results. Result diagrams: 01/20/18 21:40 01/20/18 21:40 Lab Results 01/20/18 01/20/18 01/20/18 Range/Units 00:32 21:40 21:40 WBC 6.6 (4.5-11.0) X10^3/uL RBC 4.25 (4.0-5.2) X10^6/uL Hgb 15.1 (12.0-16.0) g/dL Hct 42.0 (36-46) % MCV 98.9 (80-100) fL MCH 35.6 H (26-34) PG MCHC 36.0 (30-36) % RDW 17.4 H (11.6-14.8) % Plt Count 76 L (150-400) X10^3/uL Neut % (Auto) 74.0 (50-75) % Lymph % (Auto) 17.4 L (25-40) % [place] % (Auto) 7.9 (3-14) % Eos % (Auto) 0.3 L (2-4) % Baso % (Auto) 0.4 (0-2) % Neut # (Auto) 4900 (2784-0384) /uL Sodium 141 (137-145) mmol/L Potassium 3.5 (3.4-5.1) mmol/L Chloride 97 L (98-107) mmol/L Carbon Dioxide 23 (22-32) mmol/L BUN 6 L (7-17) mg/dL Creatinine 0.50 L (0.52-1.04) mg/dL Estimated GFR > 60.0 (>60) mL/min BUN/Creatinine Ratio 12.0 (6-22) Glucose 104 H (70-100) mg/dL Calcium 8.1 L (8.4-10.2) mg/dL Total Bilirubin 1.1 (0.2-1.3) mg/dL AST 114 H (14-36) IU/L ALT 35 (9-52) IU/L Alkaline Phosphatase 80 (38-126) U/L Lactate Dehydrogenase 505 (313-618) U/L Total Protein 7.5 (6.3-8.2) g/dL Albumin 4.5 (3.5-5.0) g/dL Globulin 3.0 (1.7-4.1) g/dL Albumin/Globulin Ratio 1.5 (1.0-2.8) Lipase 3814 H (23-300) U/L Point of care testing: Point of Care Testing Test Results Negative Urine Dip Bedside Urine Glucose Negative Bedside Urine Bilirubin - Negative Bedside Urine Ketone - Negative Urine Specific [place] 1.010 Bedside Urine Occult Blood - Negative Bedside Urine pH 6.0 Bedside Urine Protein - Negative Bedside Urine Urobilinogen - Negative Bedside Urine Nitrite - Negative Bedside Urine Leukocytes - Negative Esterase Imaging Data CT scan - abdomen: 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 No free air. There is diminished enhancement of head and neck region of the pancreas concerning for early necrosis. No pancreatic contour abnormality or pancreatic ductal dilatation is identified. There is wall thickening and luminal narrowing of the ascending colon which may represent focal colitis. Colitis cannot be so the secondary to surrounding. Pancreatic fluid. There is some fluid-filled mildly distended small bowel loops in the abdomen pelvis which could represent ileus versus early or partial small-bowel obstruction. Exact transition point is difficult to identify. Fatty infiltration of liver. MDM Narrative Medical decision making narrative: Patient's pain is much better controlled with Dilaudid. CT concerning for early necrosis. She is empirically started on imipenem. She looks nontoxic is appears well conversing with her father easily. I discussed case with Dr. Dillard. He is aware of early necrosis on CT is discussed transfer versus admit here. At this time will admit here IV fluids pain control and monitor. Tavo's Criteria for Pancreatitis Mortality from [employer] on 01/21/2018 All calculations should be rechecked by clinician prior to use RESULT SUMMARY: 1 points Tavo?s Criteria (On Admission) Severe pancreatitis unlikely. 1 points Tavo?s Criteria (Cumulative) 1% predicted mortality. INPUTS: WBC > 16k ?> 0 = No Age > 55 ?> 0 = No Glucose >200 mg/dL (>10 mmol/L) ?> 0 = No AST > 250 ?> 0 = No LDH > 350 ?> 1 = Yes Hct drop >10% from admission ?> 0 = No BUN increase >5 mg/dL (>1.79 mmol/L) from admission ?> 0 = No Ca <8 mg/dL (<2 mmol/L) within 48 hours ?> 0 = No Arterial pO2 <60 mmHg within 48 hours ?> 0 = No Base deficit (24 - HCO3) >4 mg/dL within 48 hours ?> 0 = No Fluid needs > 6L within 48 hours ?> 0 = No Discharge Plan Departure Patient Disposition: Admitted As Inpatient Clinical Impression: Acute pancreatitis Discharge Date/Time: 01/21/18 00:39 Interventions: ED Discharge Assessment Last Done: 01/21/18 00:33 Admit Date/Time: 01/20/18 23:47 Admit Provider: Tucker Dillard
[2018-01-20] MEDS: SODIUM CHLORIDE 0.9% 1,000 ML 1000 ML IV (21:45)
[2018-01-20] MEDS: PANTOPRAZOLE 40 MG VIAL IV (21:45)
[2018-01-20] MEDS: ONDANSETRON 4 MG/2 ML INJ IV (21:50)
[2018-01-20] MEDS: MORPHINE 4 MG/ML INJ IV (21:51)
[2018-01-20 21:53] LABS: Add Manual Diff / Slide Review NO; Basophils Percent Auto 0.4 % (0-2); Eosinophils Percent Auto 0.3 % (2-4); Hemoglobin 15.1 g/dL (12.0-16.0); Lymphocytes Percent Auto 17.4 % (25-40); Mean Corpuscular Hemoglobin 35.6 PG (26-34); Mean Corpuscular Volume 98.9 fL (80-100); Monocytes Percent Auto 7.9 % (3-14); Neutrophils Absolute Auto 4900 /uL (3000-5900); Platelet Count 76 X10^3/uL (150-400); Red Blood Cell Count 4.25 X10^6/uL (4.0-5.2); Red Cell Distribution Width 17.4 % (11.6-14.8); White Blood Cell Count 6.6 X10^3/uL (4.5-11.0)
[2018-01-20 21:59] LABS: Alanine Aminotransferase 35 IU/L (9-52); Albumin 4.5 g/dL (3.5-5.0); Albumin Globulin Ratio 1.5 (1.0-2.8); Alkaline Phosphatase 80 U/L (38-126); Aspartate Aminotransferase 114 IU/L (14-36); Bilirubin Total 1.1 mg/dL (0.2-1.3); Blood Urea Nitrogen 6 mg/dL (7-17); Calcium 8.1 mg/dL (8.4-10.2); Carbon Dioxide 23 mmol/L (22-32); Chloride 97 mmol/L (98-107); Estimated Glomerular Filt Rate > 60.0 mL/min (>60); Glucose 104 mg/dL (70-100); HEMOLYSIS < 15 (0-50); Potassium 3.5 mmol/L (3.4-5.1); Sodium 141 mmol/L (137-145); Total Protein 7.5 g/dL (6.3-8.2)
[2018-01-20 22:08] LABS: Lipase 3814 U/L (23-300)
[2018-01-20] MEDS: SODIUM CHLORIDE 0.9% 1,000 ML 200 ML IV (23:12)
[2018-01-20 23:21] VITALS: BP 117/80; PULSE 104; RESP 18; O2SAT 96
--- NOTE | 2018-01-20 23:28 | PC.NURSE ---
DR Jules gave verbal order to bolus the second liter ns rather than 200 ml per hr.
[2018-01-20] MEDS: HYDROMORPHONE 1 MG INJ 0.5 MG IV (23:36)
[2018-01-21] VITALS (12 sets, daily range): BP systolic 115–137; BP diastolic 67–96; PULSE 97–116; RESP 15–19; TEMP 36.4–37.2; O2SAT 92–99; BMI 23.6
[2018-01-21] MEDS: IMIPENEM/CILASTATIN 500 MG in SODIUM CHLORIDE 0.9% 100 ML 200 ML IV ×2 (00:13→08:09)
[2018-01-21 00:43] LABS: Lactate Dehydrogenase 505 U/L (313-618)
[2018-01-21] MEDS: LACTATED RINGERS 1,000 ML 250 ML IV (01:01)
[2018-01-21] MEDS: HYDROMORPHONE 1 MG INJ 0.5 MG IV ×3 (01:02→07:54)
[2018-01-21] MEDS: LORazepam 2 MG/ML SYRINGE IV ×9 (01:45→22:46)
[2018-01-21 06:15] LABS: Alanine Aminotransferase 31 IU/L (9-52); Albumin 3.5 g/dL (3.5-5.0); Albumin Globulin Ratio 1.3 (1.0-2.8); Alkaline Phosphatase 59 U/L (38-126); Aspartate Aminotransferase 76 IU/L (14-36); Bilirubin Total 1.1 mg/dL (0.2-1.3); Blood Urea Nitrogen 3 mg/dL (7-17); Carbon Dioxide 26 mmol/L (22-32); Chloride 100 mmol/L (98-107); Estimated Glomerular Filt Rate > 60.0 mL/min (>60); Globulin 2.6 g/dL (1.7-4.1); Glucose 75 mg/dL (70-100); HEMOLYSIS < 15 (0-50); Potassium 3.4 mmol/L (3.4-5.1); Sodium 140 mmol/L (137-145); Total Protein 6.1 g/dL (6.3-8.2)
[2018-01-21 06:22] LABS: Lipase 2266 U/L (23-300)
[2018-01-21 06:23] LABS: Calcium 7.2 mg/dL (8.4-10.2)
--- NOTE | 2018-01-21 06:50 | PC.NURSE ---
Pt arrived around 0045, A&Ox3, rated her pain 7/10 and vomited 300cc. pt's CIWA was 11 and 8, administered lorazepam per protocol. call light in reach.
--- NOTE | 2018-01-21 09:15 | P.HP_ITS ---
History of Present Illness Date Patient Seen: 01/21/18 Time Patient Seen: 09:06 Chief complaint: ABDOMEN PAIN X3 DAYS Narrative: 32-year-old female with history of alcohol dependence has been drinking a bottle of vodka a day for the past couple of weeks. Started having intense abdominal pain about 2 or 3 days ago with some nausea and some vomiting. Prior history of pancreatitis for this patient. Came into the emergency room for evaluation. Her last drink was yesterday about 2:00 a.m. she states. She has gone through rehab for alcohol in the past she has no current wishes to do that however Patient History Medical History Alcoholic ketoacidosis (Resolved) Alcohol withdrawal (Acute) Alcoholism (Chronic) Pancreatitis (Acute) ADHD (attention deficit hyperactivity disorder) (Chronic 2001) Alcoholism (Chronic) Anxiety (Chronic Unknown) Vitamin B 12 deficiency (Chronic Unknown) Chickenpox (Resolved 1990) Foot pain (Resolved 2011) Gastrointestinal bleeding (Resolved) Surgical History S/P wrist surgery (Resolved ~2011) Status post adenoidectomy (1988) Family & Social History Social History: household members family Safety & Behavioral: Feels Safe in Current Yes Environment Been Physically Hurt or No Threatened By a Person Suicidal Ideation Description None Suicide Plan Description No Plan Tobacco & Substance use: Tobacco type cigarettes Smoking Status Current every day smoker alcohol intake never alcohol intake frequency 0-2 drinks per day Substance Use Type does not use Meds Home Medications Medication Instructions Recorded Confirmed Type lisdexamfetamine [Vyvanse] 40 mg PO QDAY #0 01/13/17 01/20/18 History omeprazole 20 mg PO DAILY #0 04/28/17 01/20/18 History lorazepam 1 mg PO BID-TID PRN #30 tab 10/07/17 01/20/18 Rx cyanocobalamin (vit B-12) 3,000 3,000 mcg SL DAILY 10/20/17 01/20/18 History mcg/mL sublingual drops zolpidem 10 mg tablet 10 mg PO BEDTIME #30 tab 10/20/17 01/20/18 Rx lorazepam 1 mg tablet 1 mg PO BIDP PRN #30 tab 11/30/17 Rx lorazepam [Ativan] See Label Instructions .ROUTE 01/13/18 Rx .COMPLEX PRN #19 tab ondansetron [Zofran ODT] 4 mg PO TID-QID PRN #14 tab 01/13/18 01/20/18 Rx Allergies Allergy/AdvReac Type Severity Reaction Status Date / Time No Known Allergies Allergy Unknown Verified 01/20/18 21:12 [NO KNOWN ALLERGIES] Review of Systems Constitutional Constitutional: Reports anorexia Eyes Eyes: Reports system reviewed; no additional complaints, except as documented ENT Ears, Nose, Mouth, and Throat: Yes system reviewed; no additional complaints, except as documented Cardiovascular Cardiovascular: Denies chest pain, Denies chest pain with activity and Denies irregular heart rhythm Respiratory Respiratory: Denies change in phlegm color and Denies wheezing Gastrointestinal Gastrointestinal: Reports abdominal pain, Denies melena, Denies hematochezia, Reports change in bowel habits, Reports loose stools, Reports nausea, Reports vomiting and Denies hematemesis Genitourinary Genitourinary: Reports system reviewed and no additional complaints, except as documented Musculoskeletal Musculoskeletal: Reports system reviewed; no additional complaints, except as documented Integumentary/Breasts Skin/Breast: Reports system reviewed and no additional complaints, except as documented Neurologic Neurologic: Reports system reviewed and no additional complaints, except as documented Psychiatric Psychiatric: Reports anxiety Endocrine Endocrine: Reports system reviewed and no additional complaints, except as documented Hematologic/Lymphatic Hematologic/Lymphatic: Reports system reviewed and no additional complaints, except as documented Allergic/Immunologic Allergic/Immunologic: Reports system reviewed and no additional complaints, except as documented and Denies wheezing Exam Vital Signs (past 8 hours): - 01/21/18 02:20 01/21/18 04:43 01/21/18 07:57 Temperature 98.2 F 98.2 F Pulse Rate 97 H 103 H 104 H Respiratory Rate 16 18 Blood Pressure 120/80 120/67 129/80 Pulse Oximetry 95 94 Oxygen Delivery Method Room Air Narrative Exam Narrative: Pleasant young adult female no acute distress feeling slightly anxious she has been receiving Ativan for alcohol withdrawal so she is having is skin see what scores that are being treated with Ativan. Oropharynx clear Neck supple Lungs clear Heart tachycardic Abdomen very tender to palpation decreased bowel sounds no masses Lower extremities no edema Skin moist and warm Neuro exam anxious appearing no other focal neurologic deficits noted Objective Labs Result Diagrams: 01/20/18 21:40 01/21/18 05:34 Labs: Laboratory Results - last 24 hr 01/20/18 01/20/18 01/20/18 00:32 21:40 21:40 WBC 6.6 RBC 4.25 Hgb 15.1 Hct 42.0 MCV 98.9 MCH 35.6 H MCHC 36.0 RDW 17.4 H Plt Count 76 L Neut % (Auto) 74.0 Lymph % (Auto) 17.4 L [place] % (Auto) 7.9 Eos % (Auto) 0.3 L Baso % (Auto) 0.4 Neut # (Auto) 4900 Sodium 141 Potassium 3.5 Chloride 97 L Carbon Dioxide 23 BUN 6 L Creatinine 0.50 L Estimated GFR > 60.0 BUN/Creatinine Ratio 12.0 Glucose 104 H Calcium 8.1 L Total Bilirubin 1.1 AST 114 H ALT 35 Alkaline Phosphatase 80 Lactate Dehydrogenase 505 Total Protein 7.5 Albumin 4.5 Globulin 3.0 Albumin/Globulin Ratio 1.5 Lipase 3814 H 01/21/18 05:34 WBC RBC Hgb Hct MCV MCH MCHC RDW Plt Count Neut % (Auto) Lymph % (Auto) [place] % (Auto) Eos % (Auto) Baso % (Auto) Neut # (Auto) Sodium 140 Potassium 3.4 Chloride 100 Carbon Dioxide 26 BUN 3 L Creatinine 0.50 L Estimated GFR > 60.0 BUN/Creatinine Ratio 6.0 Glucose 75 Calcium 7.2 L Total Bilirubin 1.1 AST 76 H ALT 31 Alkaline Phosphatase 59 Lactate Dehydrogenase Total Protein 6.1 L Albumin 3.5 Globulin 2.6 Albumin/Globulin Ratio 1.3 Lipase 2266 H Assessment & Plan Plan: Assessment/Plan Narrative: One. Acute pancreatitis lipase over 3000 CT scan showing acute severe pancreatitis little bit of free fluid noted there is also fatty infiltration throughout the liver. Electrolytes at this point are within normal limits. Except calcium mildly low at 7.2. Blood pressure stable she is little tachycardic still. Plan to continue IV fluid administration and pain medication and bowel rest 2. Acute alcohol withdrawal plan to continue Ativan as needed 3. Alcoholism patient is in need of treatment she does not wish to go through that at this point she says however.
[2018-01-21] MEDS: HYDROMORPHONE 1 MG INJ IV ×6 (10:14→22:46)
[2018-01-21] MEDS: DEXTROSE 5%-0.9% NS 1,000 ML 150 ML IV ×3 (10:15→22:48)
[2018-01-21] MEDS: ENOXAPARIN 40 MG/0.4 ML SYRINGE SUBCUT (10:16)
[2018-01-21] MEDS: PANTOPRAZOLE 40 MG VIAL IV (10:16)
--- NOTE | 2018-01-21 16:15 | CM.SWNOTE ---
CD Assessment Note: Pt is a 32 yo female, resident of [place], admitted for pancreatitis w/long standing h/o ETOH abuse. Met w/pt this afternoon, explained SW role. Pt able to make eye contact throughout our conversation although eyes become heavy and pt admits she is feeling groggy and many questions are too much right now. Pt has been living w/her parents for two months. She was living in [place], working fulltime, and was hopeful she could work remotely from [place] but this has not worked out. Pt is currently looking for work. She did not divulge why she moved from [place] to [place]. Pt admits to having her last drink yesterday at 1200. She binge drank for the last 10 days, approx 750ml Vodka daily. Before this, pt was sober for 38 days. 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 There is no alcohol at her parents house and they did not know she had been drinking for the last 10 days. Pt also can not discuss what worked when she remained sober. She does say she didn't want to spiral and didn't want to end up back in the hospital. Pt has no children, no local friend or jessica support. She has gone to meetings at [facility] and [facility] which is an addiction support service w/[employer]. She felt this was helpful when she attended. Pt recognizes her s/sx of w/d today and she knows it will likely get worse soon, she has gone through the w/d process in the past. Pt denies SI/HI or prior SI/HI or suicide attempt. Pt would consider resources for outpt support but refuses inpt treatment. [employer]IST[employer] team following closely in case other DC needs arise. Outpt support resources pending pt's wishes upon DC. TAMIKO Keita
--- NOTE | 2018-01-21 23:02 | PC.NURSE ---
PATIENT IS UP TO BATHROOM WITH SBA,STILL GETTING IVP DILAUDID AND ATIVAN APPROX EVERY 2 HR.COMPLAINING OF LOTS OF PAIN TO ABD. REMAINS ON ICE CHIPS ONLY. IV FLUIDS INFUSING
[2018-01-22] VITALS (9 sets, daily range): BP systolic 124–143; BP diastolic 81–99; PULSE 101–121; RESP 15–19; TEMP 36.4–37.6; O2SAT 92–95
[2018-01-22] MEDS: LORazepam 2 MG/ML SYRINGE IV ×5 (02:30→21:00)
[2018-01-22] MEDS: HYDROMORPHONE 1 MG INJ IV ×8 (02:35→22:18)
--- NOTE | 2018-01-22 04:46 | PC.NURSE ---
Addendum entered by Angelica Kaye R.N. 01/22/18 05:23: Oral temp was 99.1 at 0520. patient doesn't want any Tylenol while pancreatic enzymes are elevated. Decided to keep door open and rotate cold washcloths on head. Original Note: NOC pt resting with eyes closed for a majority of the shift. Woke up to void several times, SBA with IV pole assistance. Patient responds appropriately to questions, but speech is slow and mumbled. CIWA at 0200 was 10, reporting mild headache, abdominal pain, mild sweating, generalized itching, no visual disturbances. Axillary temp at 0430 was 99.6, pt reporting intermittent hot flashes. Gave pt a cold washcloth for her head, removed blankets from feet (pt requested to keep socks on), and will recheck temp in 30 minutes.
[2018-01-22] MEDS: DEXTROSE 5%-0.9% NS 1,000 ML 150 ML IV ×2 (05:36→19:22)
[2018-01-22 06:08] LABS: Alanine Aminotransferase 25 IU/L (9-52); Albumin 3.3 g/dL (3.5-5.0); Albumin Globulin Ratio 1.3 (1.0-2.8); Alkaline Phosphatase 54 U/L (38-126); Aspartate Aminotransferase 43 IU/L (14-36); Bilirubin Total 1.3 mg/dL (0.2-1.3); Carbon Dioxide 28 mmol/L (22-32); Chloride 100 mmol/L (98-107); Estimated Glomerular Filt Rate > 60.0 mL/min (>60); Globulin 2.6 g/dL (1.7-4.1); Glucose 121 mg/dL (70-100); HEMOLYSIS < 15 (0-50); Lipase 861 U/L (23-300); Magnesium 1.3 mg/dL (1.6-2.3); Potassium 3.1 mmol/L (3.4-5.1); Sodium 138 mmol/L (137-145); Total Protein 5.9 g/dL (6.3-8.2)
[2018-01-22 06:17] LABS: Blood Urea Nitrogen < 2 mg/dL (7-17)
[2018-01-22 06:27] LABS: Basophils Percent Auto 0.8 % (0-2); Eosinophils Percent Auto 1.1 % (2-4); Hematocrit 34.1 % (36-46); Hemoglobin 12.4 g/dL (12.0-16.0); Lymphocytes Percent Auto 13.8 % (25-40); Mean Corpuscular Hemoglobin 36.3 PG (26-34); Mean Corpuscular Volume 99.5 fL (80-100); Monocytes Percent Auto 8.4 % (3-14); Neutrophils Absolute Auto 3400 /uL (3000-5900); Neutrophils Percent Auto 75.9 % (50-75); Platelet Count 55 X10^3/uL (150-400); Red Blood Cell Count 3.43 X10^6/uL (4.0-5.2); Red Cell Distribution Width 17.1 % (11.6-14.8); White Blood Cell Count 4.4 X10^3/uL (4.5-11.0)
[2018-01-22 06:51] LABS: Mean Corpuscular HGB Conc 36.4 % (30-36)
[2018-01-22 06:52] LABS: Add Manual Diff / Slide Review SLIDE REVIEW
[2018-01-22 06:55] LABS: Anisocytosis 1+; Polychromasia 1+; Rouleaux 1+
[2018-01-22] MEDS: PANTOPRAZOLE 40 MG VIAL IV (09:12)
--- NOTE | 2018-01-22 10:05 | P.PN_ITS ---
Subjective Date Patient Seen: 01/22/18 Time Patient Seen: 10:04 Interval history: A little less pain this morning and feeling thirsty and hungry. No passing of gas no bowel movements Exam Vital Signs (past 8 hours): - 01/22/18 04:10 01/22/18 07:25 01/22/18 09:26 Temperature 99.6 F 98.1 F Pulse Rate 121 H 109 H Respiratory Rate 19 18 Blood Pressure 138/99 H 131/86 Pulse Oximetry 92 93 95 Oxygen Delivery Method Room Air Narrative Exam Narrative: She is awake and alert appears somewhat anxious HEENT exam unremarkable Neck is supple Oropharynx dry Lungs clear Heart tachycardic Abdomen she has bruising in the right lower quadrant about 6 cm 7 cm diameter bruise she is paper machine tender throughout but much less so than yesterday bowel sounds hypoactive no masses Neuro exam awake alert no focal deficits Skin warm and dry Lower extremities trace edema Objective Labs Result Diagrams: 01/22/18 05:40 01/22/18 05:40 Labs: Laboratory Results - last 24 hr 01/22/18 01/22/18 01/22/18 05:40 05:40 05:40 WBC 4.4 L RBC 3.43 L Hgb 12.4 Hct 34.1 L MCV 99.5 MCH 36.3 H MCHC 36.4 H RDW 17.1 H Plt Count 55 L Neut % (Auto) 75.9 H Lymph % (Auto) 13.8 L [place] % (Auto) 8.4 Eos % (Auto) 1.1 L Baso % (Auto) 0.8 Neut # (Auto) 3400 RBC Morphology See below Polychromasia 1+ H Anisocytosis 1+ H Rouleaux 1+ H Sodium 138 Potassium 3.1 L Chloride 100 Carbon Dioxide 28 BUN < 2 L Creatinine 0.50 L Estimated GFR > 60.0 BUN/Creatinine Ratio 4.0 L Glucose 121 H Calcium 7.0 L Magnesium 1.3 L Total Bilirubin 1.3 AST 43 H ALT 25 Alkaline Phosphatase 54 Total Protein 5.9 L Albumin 3.3 L Globulin 2.6 Albumin/Globulin Ratio 1.3 Lipase 861 H D Cancelled Assessment & Plan Plan: Assessment/Plan Narrative: One. Acute pancreatitis lipase over 3000 CT scan showing acute severe pancreatitis little bit of free fluid noted there is also fatty infiltration throughout the liver. Potassium and magnesium were low this morning lipase much improved clinically she is improving but slowly. Plan to continue IV fluids pain control and replace packed potassium and magnesium. 2. Acute alcohol withdrawal plan to continue Ativan as needed 3. Alcoholism patient is in need of treatment she does not wish to go through that at this point she says however 4. Thrombocytopenia secondary to chronic alcoholism and chronic liver disease the Lovenox was stopped yesterday 5. Anemia plan to continue watching this closely possibly from gastritis and she is on Protonix
[2018-01-22] MEDS: MAGNESIUM SULFATE 4 GM/100 ML PIGGYBACK IV (10:19)
[2018-01-22] MEDS: ONDANSETRON 4 MG/2 ML INJ IV ×2 (11:26→17:25)
--- NOTE | 2018-01-22 12:05 | PC.NURSE ---
Day shift: VS OK. HR 101. VS assessed per CIWA/Ativan protocol on MAY.
[2018-01-22] MEDS: POTASSIUM CHLORIDE 40 MEQ in SODIUM CHLORIDE 0.9% 500 ML 130 ML IV (12:27)
--- NOTE | 2018-01-22 12:36 | CM.DPC ---
DCP CD/MH Resources Per MD, pt still receiving medication for pancreatitis and alcohol withdrawal and not stable for d/c yet today, likely another couple of days. Per RN, pt drowsy and CIWA currently 12 but able to participate in discussion. SW met bedside with pt and explained role and pt confirmed that she is still in pain but manageable and feeling quite groggy but willing to participate in d/c discussion. Pt confirms that she lives with her parents for the past couple months and she feels that they are very supportive and aware of my alcoholism and my dad attends meetings with me, they know about everything. Pt states that they will likely be in later today to visit. Pt states that she moved from [place] to [place] after she broke up with her fiance and needed to move since it was so painful to be around him. Pt has not lived in [place] before and feels that she is somewhat isolated but also needs this time to focus on her health and getting a job. Pt confirms that she has a distant hx of seeing a mental health counselor for anxiety and other life challenges when she was a teenager but denies any recent hx of mental health counseling. Pt feels that counseling may be helpful for support since her recent relationship ending, being unemployed now, and moving to a new area. Pt confirms that she has been to Inpt CD tx in the past when she lived in [place] and states she is still not interested or willing to try Inpt CD tx again at this time but states she felt Intensive Outpt CD tx was helpful and she would consider this option again. SW provided pt with information on [facility], [facility], and [facility] outpt MH and CD treatment providers and contact info for setting up intake. Pt was appreciative and stated she would likely update her parents towards their support with setting something up. Pt began to get more and more drowsy and SW left community resources and SW contact information on the whiteboard. Plan: SW to follow closely with pt closer to discharge to confirm she had a chance to review the MH and CD resources locally to determine if pt would like further SW support prior to discharging home. SW to follow for any further identified discharge planning needs. TAMIKO He
[2018-01-23] VITALS (8 sets, daily range): BP systolic 116–136; BP diastolic 65–96; PULSE 87–121; RESP 16–18; TEMP 36.3–36.8; O2SAT 92–99
[2018-01-23] MEDS: LORazepam 2 MG/ML SYRINGE IV ×7 (00:25→18:51)
[2018-01-23] MEDS: HYDROMORPHONE 1 MG INJ IV ×8 (00:25→21:38)
[2018-01-23] MEDS: DEXTROSE 5%-0.9% NS 1,000 ML 150 ML IV ×3 (01:36→18:52)
[2018-01-23 05:27] LABS: Alanine Aminotransferase 27 IU/L (9-52); Albumin 3.4 g/dL (3.5-5.0); Albumin Globulin Ratio 1.2 (1.0-2.8); Alkaline Phosphatase 60 U/L (38-126); Aspartate Aminotransferase 36 IU/L (14-36); Bilirubin Total 1.2 mg/dL (0.2-1.3); Calcium 7.1 mg/dL (8.4-10.2); Carbon Dioxide 26 mmol/L (22-32); Chloride 103 mmol/L (98-107); Estimated Glomerular Filt Rate > 60.0 mL/min (>60); Globulin 2.9 g/dL (1.7-4.1); Glucose 126 mg/dL (70-100); HEMOLYSIS < 15 (0-50); Magnesium 2.3 mg/dL (1.6-2.3); Potassium 3.4 mmol/L (3.4-5.1); Sodium 138 mmol/L (137-145); Total Protein 6.3 g/dL (6.3-8.2)
[2018-01-23 05:29] LABS: Basophils Percent Auto 0.3 % (0-2); Eosinophils Percent Auto 1.3 % (2-4); Hematocrit 32.2 % (36-46); Hemoglobin 11.9 g/dL (12.0-16.0); Lymphocytes Percent Auto 10.8 % (25-40); Mean Corpuscular Hemoglobin 36.9 PG (26-34); Mean Corpuscular Volume 99.9 fL (80-100); Monocytes Percent Auto 6.5 % (3-14); Neutrophils Absolute Auto 4000 /uL (3000-5900); Neutrophils Percent Auto 81.1 % (50-75); Platelet Count 58 X10^3/uL (150-400); Red Blood Cell Count 3.23 X10^6/uL (4.0-5.2)
[2018-01-23 05:33] LABS: Blood Urea Nitrogen < 2 mg/dL (7-17)
[2018-01-23 06:00] LABS: Add Manual Diff / Slide Review SLIDE REVIEW; Mean Corpuscular HGB Conc 36.9 % (30-36)
[2018-01-23 06:02] LABS: Polychromasia 1+
[2018-01-23 06:03] LABS: Anisocytosis 1+
[2018-01-23 06:04] LABS: Rouleaux 2+
[2018-01-23] MEDS: ONDANSETRON 4 MG/2 ML INJ IV ×2 (06:33→15:29)
[2018-01-23] MEDS: FOLIC ACID 1 MG TABLET PO (08:49)
[2018-01-23] MEDS: MULTIVITAMIN 1 TABLET 1 TAB PO (08:49)
[2018-01-23] MEDS: THIAMINE 100 MG TABLET PO (08:49)
[2018-01-23] MEDS: PANTOPRAZOLE 40 MG VIAL IV (08:50)
--- NOTE | 2018-01-23 11:22 | P.PN_ITS ---
Subjective Date Patient Seen: 01/23/18 Time Patient Seen: 11:20 Interval history: Patient feels her abdominal pain is better. She currently rates the pain as 3 to 4/10. She has just received IV Dilaudid not too long ago. She denies nausea or vomiting. She is receiving Ativan per [facility] protocol. Exam Vital Signs (past 8 hours): - 01/23/18 06:00 01/23/18 07:44 01/23/18 08:00 Temperature 97.4 F L 98.3 F Pulse Rate 98 H 121 H Respiratory Rate 16 18 Blood Pressure 133/65 136/96 H Pulse Oximetry 94 93 92 Oxygen Delivery Method Room Air Narrative Exam Narrative: General: Middle-aged woman in no acute distress HEENT: Dry mucous membrane Lungs: Clear to auscultation bilaterally Heart: Regular rhythm, no murmur appreciated Abdomen: Soft, mild epigastric tenderness, no rebound tenderness or guarding Extremities: No pitting edema Extremities: No pitting edema Objective Labs Result Diagrams: 01/23/18 05:07 01/23/18 05:07 Labs: Laboratory Results - last 24 hr 01/23/18 01/23/18 05:07 05:07 WBC 5.0 RBC 3.23 L Hgb 11.9 L Hct 32.2 L MCV 99.9 MCH 36.9 H MCHC 36.9 H RDW 17.0 H Plt Count 58 L Neut % (Auto) 81.1 H Lymph % (Auto) 10.8 L [place] % (Auto) 6.5 Eos % (Auto) 1.3 L Baso % (Auto) 0.3 Neut # (Auto) 4000 RBC Morphology See below Polychromasia 1+ H Anisocytosis 1+ H Rouleaux 2+ H Sodium 138 Potassium 3.4 Chloride 103 Carbon Dioxide 26 BUN < 2 L Creatinine 0.40 L Estimated GFR > 60.0 BUN/Creatinine Ratio 5.0 L Glucose 126 H Calcium 7.1 L Magnesium 2.3 Total Bilirubin 1.2 AST 36 ALT 27 Alkaline Phosphatase 60 Total Protein 6.3 Albumin 3.4 L Globulin 2.9 Albumin/Globulin Ratio 1.2 Assessment & Plan Plan: Assessment/Plan Narrative: 1. Acute pancreatitis: Potassium is still slightly on the low side. Plan to continue IV fluids. Start Percocet 2 tablets every 4 hr as needed for pain control. Use Dilaudid if patient is having severe pain. Advance diet to full liquid diet. 2. Acute alcohol withdrawal plan to continue Ativan as needed. 3. Alcoholism patient is in need of treatment. We have discussed the importance of staying sober to avoid future acute pancreatitis episodes. 4. Thrombocytopenia secondary to chronic alcoholism and chronic liver disease the Lovenox was stopped yesterday 5. Anemia: Possibly secondary to hypersplenism. plan to continue watching this closely. She is on Protonix. 6. Disposition: Possible discharge home tomorrow if she continues to improve.
[2018-01-23] MEDS: OXYCODONE/ACETAMINOPHEN 5/325 TABLET 2 TAB PO (18:52)
[2018-01-24] VITALS (7 sets, daily range): BP systolic 120–141; BP diastolic 75–102; PULSE 80–92; RESP 16–18; TEMP 36.3–36.9; O2SAT 93–97
[2018-01-24] MEDS: OXYCODONE/ACETAMINOPHEN 5/325 TABLET 2 TAB PO ×5 (00:38→23:59)
[2018-01-24] MEDS: LORazepam 2 MG/ML SYRINGE IV ×3 (00:44→07:44)
[2018-01-24] MEDS: DEXTROSE 5%-0.9% NS 1,000 ML 150 ML IV (01:49)
[2018-01-24] MEDS: HYDROMORPHONE 1 MG INJ IV (04:39)
[2018-01-24] MEDS: PANTOPRAZOLE 40 MG VIAL IV (08:31)
[2018-01-24] MEDS: MULTIVITAMIN 1 TABLET 1 TAB PO (08:31)
[2018-01-24] MEDS: THIAMINE 100 MG TABLET PO (08:31)
[2018-01-24] MEDS: FOLIC ACID 1 MG TABLET PO (08:31)
--- NOTE | 2018-01-24 09:05 | PM.PN.1 ---
Subjective Date Patient Seen: 01/24/18 Time Patient Seen: 08:50 Interval history: Patient seen to be tolerating the full liquid diet. She would like to eat some fruit. She currently rates the severity of her abdominal pain as 5/10. She had a CIWA score of 10 this morning which required Ativan. She had mild hallucination, seeing lights and feeling bugs crawling on her skin last night. Exam Vital Signs (past 8 hours): - 01/24/18 01:15 01/24/18 05:00 01/24/18 07:23 Temperature 97.3 F L 97.7 F 97.6 F Pulse Rate 91 H 80 92 H Respiratory Rate 16 16 16 Blood Pressure 120/75 129/81 135/84 Pulse Oximetry 96 94 93 01/24/18 07:35 Temperature Pulse Rate Respiratory Rate Blood Pressure Pulse Oximetry 94 Oxygen Delivery Method Room Air Narrative Exam Narrative: General: Pleasant appearing middle-aged woman in no acute distress Lungs: Clear to auscultation bilaterally Heart: Regular rhythm, no murmur appreciated Abdomen: Soft, mild left upper quadrant tenderness, no rebound tenderness or guarding Extremities: No pitting edema Neuro: Alert and oriented x3, mild tremors in hands, normal muscle strength Objective Labs Result Diagrams: 01/23/18 05:07 01/23/18 05:07 Assessment & Plan Plan: Assessment/Plan Narrative: 1. Acute pancreatitis: Potassium was 3.4 yesterday. Replace with 40 mEq of p.o. potassium. She has lost her IV access today. Continue Percocet 2 tablets every 4 hr as needed for pain control. Advance diet further to a low-fat diet. Continue folic acid and multivitamin for nutritional supplements. Recheck her labs in the morning. 2. Acute alcohol withdrawal: Start oral Ativan per CIWA protocol. Her CIWA score was 10 this morning. 3. Alcoholism patient is in need of treatment. We have discussed the importance of staying sober to avoid future acute pancreatitis episodes. 4. Thrombocytopenia secondary to chronic alcoholism and chronic liver disease the Lovenox was stopped yesterday 5. Anemia: Possibly secondary to hypersplenism. plan to continue watching this closely. She is on Protonix. 6. Disposition: Possible discharge home tomorrow if she continues to improve.
[2018-01-24] MEDS: POTASSIUM CHLORIDE 20 MEQ/15 ML UDC 40 MEQ PO (09:17)
--- NOTE | 2018-01-24 10:40 | PC.NURSE ---
Day shift: Pt ambulated the entire unit w/ this health technical writer at approx 1000 today. Pt tolerated well. Steady on feet w/ FWW for safety. She is A&Ox3. She is doing better today with ABD pain but JIMENEZ pain still present. Gave her 0.1mg PO Catapres this AM and her JIMENEZ is better. Medium fall risk. HAs not been impulsive. Drinking plenty of fluids but food intake remains low. Denies nausea or chest pain. Pt has also not been tachy this AM. HR 84 on assessment. Call light in reach.
[2018-01-24] MEDS: LORazepam 1 MG TABLET PO ×4 (12:25→23:59)
--- NOTE | 2018-01-24 14:35 | PC.NURSE ---
Day shift: This health science writer on break and was called about Pt not being in room and going downstairs. medical library assistant Anthony was across the street w/ Pt and she had a lit cigarette. Told Pt she was not allowed to leave the unit until d/c. She said she did not know that. Tolerated WC ride back to room well. She did state that she did not feel ready to go home yet after walking outside. Pt in shower now. Agrees to not leave the unit.
[2018-01-25 00:17] VITALS: BP 147/98; PULSE 85; RESP 16; TEMP 36.4; O2SAT 96
[2018-01-25 01:51] VITALS: O2SAT 96
[2018-01-25] MEDS: LORazepam 1 MG TABLET PO ×3 (02:21→09:32)
[2018-01-25] MEDS: OXYCODONE/ACETAMINOPHEN 5/325 TABLET 2 TAB PO ×2 (04:58→09:33)
[2018-01-25 05:28] VITALS: BP 134/95; PULSE 90; RESP 16; TEMP 36.8; O2SAT 97
[2018-01-25 05:41] LABS: Basophils Percent Auto 0.7 % (0-2); Eosinophils Percent Auto 1.7 % (2-4); Hematocrit 36.4 % (36-46); Hemoglobin 13.2 g/dL (12.0-16.0); Lymphocytes Percent Auto 21.3 % (25-40); Mean Corpuscular HGB Conc 36.3 % (30-36); Mean Corpuscular Hemoglobin 36.2 PG (26-34); Mean Corpuscular Volume 99.7 fL (80-100); Monocytes Percent Auto 11.3 % (3-14); Neutrophils Absolute Auto 2900 /uL (3000-5900); Platelet Count 125 X10^3/uL (150-400); Red Blood Cell Count 3.65 X10^6/uL (4.0-5.2); Red Cell Distribution Width 16.5 % (11.6-14.8); White Blood Cell Count 4.5 X10^3/uL (4.5-11.0)
[2018-01-25 05:48] LABS: Carbon Dioxide 25 mmol/L (22-32); Chloride 103 mmol/L (98-107); Estimated Glomerular Filt Rate > 60.0 mL/min (>60); Glucose 93 mg/dL (70-100); HEMOLYSIS < 15 (0-50); Lipase 278 U/L (23-300); Potassium 3.5 mmol/L (3.4-5.1); Sodium 139 mmol/L (137-145)
[2018-01-25 05:54] LABS: Add Manual Diff / Slide Review SLIDE REVIEW
[2018-01-25 06:02] LABS: Blood Urea Nitrogen < 2 mg/dL (7-17)
[2018-01-25] MEDS: PANTOPRAZOLE 40 MG TABLET PO (06:37)
[2018-01-25 06:46] LABS: Polychromasia 1+
[2018-01-25 06:48] LABS: Anisocytosis 1+; Rouleaux 1+
[2018-01-25 07:22] VITALS: BP 140/89; PULSE 95; RESP 16; TEMP 36.7; O2SAT 97
[2018-01-25 07:54] VITALS: O2SAT 98
[2018-01-25] MEDS: FOLIC ACID 1 MG TABLET PO (09:30)
[2018-01-25] MEDS: THIAMINE 100 MG TABLET PO (09:30)
[2018-01-25] MEDS: MULTIVITAMIN 1 TABLET 1 TAB PO (09:30)
[2018-01-25 11:40] VITALS: BP 119/91; PULSE 103; RESP 16; TEMP 36.9; O2SAT 98
--- NOTE | 2018-01-25 13:49 | PC.NURSE ---
Day shift: Pt left unit at 1345 w/ this typewriters functional tester to private car in . Pt's Mom is the waste collection driver. Gave info on alcohol abuse. See d/c packet for all info. Paperwork signed and all questions answered. Pt has all personal belongings.
--- NOTE | 2018-01-25 17:38 | PM.DS.1 ---
History of Present Illness Chief complaint: ABDOMEN PAIN X3 DAYS Narrative: 32-year-old female with history of alcohol dependence has been drinking a bottle of vodka a day for the past couple of weeks. Started having intense abdominal pain about 2 or 3 days ago with some nausea and some vomiting. Prior history of pancreatitis for this patient. Came into the emergency room for evaluation. Her last drink was yesterday about 2:00 a.m. she states. She has gone through rehab for alcohol in the past she has no current wishes to do that however Discharge Providers Date of admission: 01/20/18 23:47 Primary care physician: Leticia Montes DO Consults: 01/21/18 00:45 Consult to Physician Routine Comment: Consulting Provider: Tucker Dillard Reason for consultation: admission Has provider been notified: Yes 01/21/18 09:04 Consult to Dietitian, Adult Routine Comment: Reason For Exam: alcoholism at risk for malnutrition Discharge provider: Dave Martin MD Discharge Date: 01/25/18 Summary Discharge Diagnosis: 1. Acute ETOH pancreatitis 2. Acute ETOH withdrawal 3. Chronic alcoholism/alcohol dependency Hospital Course: Patient was treated with IV fluids, pain control, initial bowel rest for acute pancreatitis. Symptoms substantially improved by day of discharge. She is tolerating full liquid diet. On exam her abdomen is nondistended and nontender. She appears largely over the withdrawal but I did give her 10 tablets of lorazepam to take as needed for any residual acute withdrawal symptoms. She is advised as to complete alcohol cessation and given resources for treatment of alcohol dependency. She will advance diet as tolerated. Status at Discharge Functional status at discharge: independent ambulation Time Spent with Patient Greater than 30 minutes Exam Vital Signs (past 8 hours): - 01/25/18 11:40 Temperature 98.4 F Pulse Rate 103 H Respiratory Rate 16 Blood Pressure 119/91 H Pulse Oximetry 98 Oxygen Delivery Method Room Air Objective Labs Result Diagrams: 01/25/18 05:06 01/25/18 05:06 Labs: Laboratory Results - last 24 hr 01/25/18 01/25/18 05:06 05:06 WBC 4.5 RBC 3.65 L Hgb 13.2 Hct 36.4 MCV 99.7 MCH 36.2 H MCHC 36.3 H RDW 16.5 H Plt Count 125 L Neut % (Auto) 65.0 Lymph % (Auto) 21.3 L [place] % (Auto) 11.3 Eos % (Auto) 1.7 L Baso % (Auto) 0.7 Neut # (Auto) 2900 L RBC Morphology See below Polychromasia 1+ H Anisocytosis 1+ H Rouleaux 1+ H Sodium 139 Potassium 3.5 Chloride 103 Carbon Dioxide 25 BUN < 2 L Creatinine 0.50 L Estimated GFR > 60.0 BUN/Creatinine Ratio 4.0 L Glucose 93 Calcium 9.0 Lipase 278 D Discharge Plan Discharge Plan Patient Disposition: Home Discharge Med Rec/Prescriptions Prescriptions: Continue cyanocobalamin (vitamin B-12) 3,000 mcg/mL drops 3,000 mcg SL DAILY RF: 0 zolpidem 10 mg tablet 10 mg PO BEDTIME Qty: 30 RF: 0 lisdexamfetamine [Vyvanse] 40 MG capsule 40 mg PO QDAY Qty: 0 RF: 0 omeprazole 20 mg Tablet,Delayed Release (Dr/Ec) 20 mg PO DAILY Qty: 0 RF: 0 ondansetron [Zofran ODT] 4 mg tablet,disintegrating 4 mg PO TID-QID PRN (Reason: nausea and vomiting) Qty: 14 RF: 0 lorazepam 1 mg tablet 1 mg PO BID-TID PRN (Reason: alcohol withdrawal) Qty: 10 RF: 0 Discontinued lorazepam [Ativan] 1 mg tablet 1 mg PO BIDP PRN (Reason: anxiety) Qty: 30 RF: 0 lorazepam [Ativan] 1 mg tablet See Label Instructions .ROUTE .COMPLEX PRN (Reason: alcohol withdrawal) Qty: 19 RF: 0 Follow up/Referrals: Leticia Montes DO [Primary Care Provider] - 1 Week (please call & schedule a hospital follow up with Dr.T Montes at [facility] for 1 week from discharge [phone] ) Provider Discharge Instructions Diet: Diet as Tolerated and Low-fat Visit Report/Discharge Packet Instructions: Medication May Reduce Heavy Drinking and Increase Abstinence in Alcoholics, Alcohol and Stress: There are Safer Ways to [place], Alcoholism (Alternative Therapy), Acute Pancreatitis, DI for Alcohol Abuse, Acetaminophen, Lorazepam Visit Report Forms: Stroke Signs & Symptoms Discharge Data Primary Care Provider: Leticia Montes Attending Provider: Tucker Dillard Admit Date/Time: 01/20/18 23:47 Discharges patient from system. Discharge Date/Time: 01/25/18 13:51
== END 2018-01-25 13:51 | disposition home or self-care (01) | DRG 282 ==
LOC: ED 23:31 → AC 23:48
PROVIDERS: Internal Medicine; Admitting Provider Internal Medicine; Emergency Provider Emergency Medicine; Family Provider Family Medicine; PCP Family Medicine; Visit Provider Internal Medicine
DX: K85.20 Alcohol induced acute pancreatitis without necrosis or infection (principal); F10.230 Alcohol dependence with withdrawal, uncomplicated; F41.9 Anxiety disorder, unspecified; F90.1 Attention-deficit hyperactivity disorder, predominantly hyperactive type; D69.59 Other secondary thrombocytopenia; D64.89 Other specified anemias; K70.9 Alcoholic liver disease, unspecified; F17.210 Nicotine dependence, cigarettes, uncomplicated
CPT/HCPCS: 36415; 36591; 74177; 80048; 80053; 81003; 81025; 83615; 83690; 83735; 85025; 96361; 96374; 96375; 99284; 99285; 99406; C9113; J0743; J1170; J1650; J2060; J2270; J2405; J3475; J3480; Q9967